=== PATIENT | female | born 1970 | race Caucasian/White ===

== ENCOUNTER 2017-07-01 19:55 | Emergency (ER) | payer OTHER ==
[~2017-07-01] VITALS: Ht 162.6 cm; Wt 60.7 kg
[2017-07-01] MEDS ORDERED: ZONI50CA3 (20:00)
[2017-07-01] MEDS ORDERED: HYDR200T3 (20:00)
[2017-07-01] MEDS ORDERED: NAPR500T3 (20:00)
[2017-07-01] MEDS ORDERED: FLUORESCEIN OPHTH 1 MG STRIP OS ONE (21:00)
[2017-07-01] MEDS ORDERED: TETRACAINE 0.5% OPHTH SOLN 4ML OS ONE (21:00)
[2017-07-01] MEDS ORDERED: TOBRAMYCIN 0.3% OPHTH SOLN 5 ML OS ONE (21:45)
[2017-07-01 21:50] VITALS: BP 113/77
== END 2017-07-01 21:56 | disposition home or self-care (01) ==
LOC: M ED 19:55
DX: S05.02XA Injury of conjunctiva and corneal abrasion without foreign body, left eye, initial encounter (principal); X58.XXXA Exposure to other specified factors, initial encounter; Y92.9 Unspecified place or not applicable; Y93.9 Activity, unspecified; Y99.8 Other external cause status; Z88.6 Allergy status to analgesic agent; Z79.899 Other long term (current) drug therapy; Z88.1 Allergy status to other antibiotic agents

== ENCOUNTER → 2018-07-21 | Outpatient (CLI) | payer OTHER ==
[~2018-07-21] MED LIST: LIDOCAINE 1% MDV 20ML VIAL As Ordered
== END ==
LOC: M RADPRO 12:00
DX: E07.9 Disorder of thyroid, unspecified (principal)
CPT/HCPCS: 10022

== ENCOUNTER → 2018-12-03 | Outpatient (REF) | payer OTHER ==
[~2018-12-03] MED LIST changes: +HYDR200T3; -LIDOCAINE 1% MDV 20ML VIAL As Ordered; +NAPR-885; +ZONI50CA3
== END ==
LOC: M SFHCLERA 18:50
PROVIDERS: ATTEND Nurse Practitioner Family
DX: R53.81 Other malaise (principal)

== ENCOUNTER → 2018-12-16 | Outpatient (CLI) | payer OTHER ==
--- NOTE | 2018-12-16 20:17 | REP ---
CHEST PA AND LATERAL: 12/16/2018. Clinical history: Cough, dyspnea, chest pain. Comparison: AP portable chest 12/06/2011. Findings: Two-view show the lungs well inflated. The CP angles sharply defined. There is no effusion, lateral pleural thickening or apical scarring. No pneumothorax. I see no infiltrate, atelectasis or mass. The heart, mediastinal and hilar contours are normal. Bony thorax shows no focal lesion or compression deformity no free air the diaphragm. Impression: 1. No acute cardiopulmonary change. Electronically Signed by Demario Zhao MD 12/16/2018 08:54 P
== END ==
LOC: M LRY 17:56
PROVIDERS: ATTEND Nurse Practitioner Family
DX: M79.10 Myalgia, unspecified site (principal)

== ENCOUNTER 2020-04-21 15:07 | Emergency (ER) | payer OTHER ==
[~2020-04-21] VITALS: Ht 162.6 cm; Wt 61.7 kg
[~2020-04-21 15:07] MED LIST changes: +ZONI50CA11; -ZONI50CA3
[2020-04-21] MEDS ORDERED: ZONI25CA13 PO ×2 (15:26)
[2020-04-21] MEDS ORDERED: MAXA10TA14 (15:27)
[2020-04-21] MEDS ORDERED: CELE1CAP4 (15:27)
[2020-04-21] MEDS ORDERED: NS 1,000 ML IV ONE (16:00)
[2020-04-21 16:19] LABS: BASO % 0.4 % (0.0-1.0); EOS % 0.4 % (0.0-3.0); HEMATOCRIT 41.5 % (36.0-47.0); HEMOGLOBIN 14.1 g/dl (12.0-15.5); LYMPH % 9.6 % (24.0-44.0); MEAN CORPUSCULAR HEMOGLOBIN 30.1 pg (27.0-33.0); MEAN CORPUSCULAR VOLUME 88.7 fl (80.0-96.0); MONO # 0.5 10^3/uL (0.0-0.8); NEUTROPHILS # 8.4 10^3/uL (1.5-8.5); NEUTROPHILS % 84.2 % (36.0-66.0); PLATELET COUNT, AUTOMATED 241 10^3/uL (150-450); RED BLOOD COUNT 4.68 10^6/uL (4.00-5.40); WHITE BLOOD COUNT 9.9 10^3/uL (4.0-10.0)
[2020-04-21 16:25] LABS: BLOOD UREA NITROGEN 22 MG/DL (7-18); CALCIUM LEVEL 8.9 MG/DL (8.5-10.1); CARBON DIOXIDE LEVEL 25 MEQ/L (21-32); CHLORIDE LEVEL 111 MEQ/L (98-107); CK-MB VALUE MASS < 1.0 NG/ML (<3.6); CPK CREATINE PHOSPHOKINASE 77 U/L (26-192); CREATININE FOR GFR 0.86 MG/DL (0.55-1.30); ETHYL ALCOHOL (ETHANOL) < 0.003 % (0.000-0.010); GLOMERULAR FILTRATION RATE > 60.0 (>51); GLUCOSE, FASTING 111 MG/DL (70-100); MAGNESIUM LEVEL 1.7 MG/DL (1.8-2.4); POTASSIUM SERUM 3.7 MEQ/L (3.5-5.1); SODIUM LEVEL 144 MEQ/L (136-145); TROPONIN I < 0.02 NG/ML (< 0.10)
[2020-04-21 16:45] VITALS: BP 109/63
[2020-04-21 18:19] LABS: AMPHETAMINES LEVEL URINE NEGATIVE (NEGATIVE); BARBITURATES URINE NEGATIVE (NEGATIVE); BENZODIAZEPINES URINE NEGATIVE (NEGATIVE); CANNABINOIDS URINE NEGATIVE (NEGATIVE); COCAINE METABOLITE URINE NEGATIVE (NEGATIVE); METHADONE URINE NEGATIVE (NEGATIVE); OPIATES URINE NEGATIVE (NEGATIVE); PHENCYCLIDINE URINE NEGATIVE (NEGATIVE)
--- NOTE | 2020-04-21 21:32 | ECGEPIP ---
[facility] - ED Test Date: 2020-04-21 Pat Name: PETROS ZAMBRANO Department: Room: - Gender: Female Noc Engineer: turner : [id number] Requested By: JENNIFER DALAL Order Number: [id number] Reading MD: Van Keith Measurements Intervals [place] Rate: 67 P: 55 AR: 182 QRS: 23 QRSD: 99 T: 41 QT: 395 QTc: 417 Interpretive Statements SINUS RHYTHM POSSIBLE INCOMPLETE RIGHT BUNDLE BRANCH BLOCK NONSPECIFIC T-WAVE ABNORMALITY NO PRIORS FOR COMPARISON Electronically Signed on 04-21-2020 21:31:38 EDT by Van Keith
== END 2020-04-21 17:33 | disposition home or self-care (01) ==
LOC: EDBD 15:07 → M ED 15:07
DX: R55 Syncope and collapse (principal); M32.9 Systemic lupus erythematosus, unspecified; Z88.1 Allergy status to other antibiotic agents
CPT/HCPCS: 80048; 80307; 82550; 82553; 83735; 84443; 84484; 85025; 93005; 93041; 94760; 96360; 99285; G0480

== ENCOUNTER → 2022-06-01 | Outpatient (CLI) | payer OTHER ==
[~2022-06-01] MED LIST changes: +CELE1CAP4; +MAXA10TA14; +ZONI25CA13 PO
== END ==
LOC: M SOG 08:47
PROVIDERS: ATTEND Orthopaedic Surgery Adult Reconstructive Orthopaedic Surgery
DX: M25.561 Pain in right knee (principal)

== ENCOUNTER → 2022-06-07 | Outpatient (REF) | payer OTHER | LOC: M LAB REF 12:45 | PROVIDERS: ATTEND Physician Assistant | DX: N39.0 Urinary tract infection, site not specified (principal) ==

== ENCOUNTER → 2022-06-27 | Outpatient (CLI) | payer OTHER | LOC: M WHC 10:51 | PROVIDERS: ATTEND Student in an Organized Health Care Education/Training Program | DX: Z12.31 Encounter for screening mammogram for malignant neoplasm of breast (principal) ==

== ENCOUNTER 2022-08-20 08:45 | Observation (INO) | payer OTHER ==
[~2022-08-20] VITALS: Ht 162.6 cm; Wt 61.4 kg
[~2022-08-20 08:45] MED LIST changes: -CELE1CAP4; +CELE1CAP4 PO; +FLUTISP NARES; -HYDR200T3; +HYDR200T3 PO; +LORA-674 PO; -MAXA10TA14; +MUCI30TA5 PO; +MULTTAB61 PO; +OMEP40CA5 PO; +RIZA10TA64 PO; +ZONI50CA11 PO
[2022-08-20] MEDS ORDERED: [UNRECOGNIZED DRUG - CODE] PO (09:04)
[2022-08-20 09:28] LABS: BASO % 0.6 % (0.0-1.0); EOS # 0.1 10^3/uL (0.0-0.5); EOS % 1.9 % (0.0-3.0); HEMATOCRIT 39.6 % (36.0-47.0); HEMOGLOBIN 13.1 g/dl (12.0-15.5); LYMPH # 0.6 10^3/uL (1.5-5.0); LYMPH % 17.7 % (24.0-44.0); MEAN CORPUSCULAR HEMOGLOBIN 28.1 pg (27.0-33.0); MEAN CORPUSCULAR HGB CONC 33.1 g/dl (32.0-36.5); MONO # 0.2 10^3/uL (0.0-0.8); MONO % 6.5 % (2.0-8.0); NEUTROPHILS # 2.4 10^3/uL (1.5-8.5); PLATELET COUNT, AUTOMATED 248 10^3/uL (150-450); RED BLOOD COUNT 4.66 10^6/uL (4.00-5.40); WHITE BLOOD COUNT 3.2 10^3/uL (4.0-10.0)
[2022-08-20 10:16] LABS: CK-MB VALUE MASS < 1.0 NG/ML (<3.6); CPK CREATINE PHOSPHOKINASE 52 U/L (26-192); MB/CK RELATIVE INDEX 1.92 (< OR =4)
[2022-08-20 10:18] LABS: ALBUMIN 3.5 GM/DL (3.2-5.2); ALT/SGPT 20 U/L (12-78); BILIRUBIN,DIRECT < 0.1 MG/DL (0.0-0.2); BILIRUBIN,TOTAL 0.3 MG/DL (0.2-1.0); BLOOD UREA NITROGEN 19 MG/DL (7-18); CALCIUM LEVEL 8.7 MG/DL (8.5-10.1); CARBON DIOXIDE LEVEL 22 MEQ/L (21-32); CHLORIDE LEVEL 114 MEQ/L (98-107); CREATININE FOR GFR 0.69 MG/DL (0.55-1.30); FREE T4 1.09 NG/DL (0.76-1.46); GLOMERULAR FILTRATION RATE > 60.0 (>51); GLUCOSE, FASTING 116 MG/DL (70-100); LIPASE 96 U/L (73-393); POTASSIUM SERUM 3.6 MEQ/L (3.5-5.1); SODIUM LEVEL 144 MEQ/L (136-145); TOTAL PROTEIN 6.8 GM/DL (6.4-8.2)
[2022-08-20 11:31] LABS: CK-MB VALUE MASS < 1.0 NG/ML (<3.6); CPK CREATINE PHOSPHOKINASE 49 U/L (26-192); MB/CK RELATIVE INDEX 2.04 (< OR =4)
[2022-08-20] MEDS ORDERED: ISOVUE-370 76% 100ML VIAL As Ordered ONE (12:16)
[2022-08-20] MEDS ORDERED: BENL200I IM (12:36)
[2022-08-20 18:52] LABS: AMPHETAMINES LEVEL URINE NEGATIVE (NEGATIVE); BARBITURATES URINE NEGATIVE (NEGATIVE); BENZODIAZEPINES URINE NEGATIVE (NEGATIVE); CANNABINOIDS URINE NEGATIVE (NEGATIVE); COCAINE METABOLITE URINE NEGATIVE (NEGATIVE); METHADONE URINE NEGATIVE (NEGATIVE); OPIATES URINE NEGATIVE (NEGATIVE); PHENCYCLIDINE URINE NEGATIVE (NEGATIVE)
[2022-08-20] MEDS ORDERED: METOPROLOL TART 25 MG TABLET PO ONE (19:00)
[2022-08-20] MEDS ORDERED: ATEN25TA PO (19:02)
[2022-08-20 19:09] VITALS: BP 110/71
[2022-08-20] MEDS ORDERED: VITA100093 PO (21:47)
[2022-08-20] MEDS ORDERED: PROAAER10 INH (21:47)
[2022-08-20] MEDS ORDERED: HOME MED LIST COMPLETE! XX SCH (21:50)
[2022-08-20] MEDS ORDERED: NS 1,000 ML IV ONE (22:15)
[2022-08-20] MEDS ORDERED: MOM 30ML SUSPENSION UDC PO PRN (23:00)
[2022-08-20] MEDS: NS 1,000 ML IV SCH (23:00)
[2022-08-21 00:16] LABS: RSV AMPLIFICATION NEGATIVE (NEGATIVE)
[2022-08-21] MEDS: ZONISAMIDE 50 MG CAP (ZONEGRAN) PO SCH ×2 (03:26→19:57)
[2022-08-21] MEDS: HYDROXYCHLOROQUINE 200 MG TAB PO SCH ×2 (03:26→19:57)
[2022-08-21 09:15] LABS: HEMATOCRIT 32.6 % (36.0-47.0); MEAN CORPUSCULAR HEMOGLOBIN 27.7 pg (27.0-33.0); MEAN CORPUSCULAR HGB CONC 31.9 g/dl (32.0-36.5); MEAN CORPUSCULAR VOLUME 86.9 fl (80.0-96.0); PLATELET COUNT, AUTOMATED 238 10^3/uL (150-450); RED BLOOD COUNT 3.75 10^6/uL (4.00-5.40); WHITE BLOOD COUNT 2.9 10^3/uL (4.0-10.0)
[2022-08-21 09:26] LABS: HEMOGLOBIN 10.4 g/dl (12.0-15.5)
[2022-08-21] MEDS: NS 1,000 ML IV SCH (09:30)
[2022-08-21] MEDS: ENOXAPARIN 40MG/0.4ML SYRINGE (J1650 PER 10MG) SC SCH ×2 (09:30→09:38)
[2022-08-21] MEDS: LORATADINE 10 MG TAB PO SCH (09:30)
[2022-08-21 09:40] LABS: ALBUMIN 2.6 GM/DL (3.2-5.2); ALT/SGPT 15 U/L (12-78); BILIRUBIN,TOTAL 0.3 MG/DL (0.2-1.0); BLOOD UREA NITROGEN 16 MG/DL (7-18); CALCIUM LEVEL 8.1 MG/DL (8.5-10.1); CARBON DIOXIDE LEVEL 23 MEQ/L (21-32); CHLORIDE LEVEL 117 MEQ/L (98-107); CREATININE FOR GFR 0.53 MG/DL (0.55-1.30); GLOMERULAR FILTRATION RATE > 60.0 (>51); GLUCOSE, FASTING 95 MG/DL (70-100); MAGNESIUM LEVEL 1.7 MG/DL (1.8-2.4); POTASSIUM SERUM 3.6 MEQ/L (3.5-5.1); SODIUM LEVEL 144 MEQ/L (136-145); TOTAL PROTEIN 5.3 GM/DL (6.4-8.2)
[2022-08-21 12:10] VITALS: BP_SYST 128; BP_SYST 140; BP_DIAS 84; BP_DIAS 86
[2022-08-21 14:00] VITALS: BP 120/72
[2022-08-21] MEDS ORDERED: MAGNESIUM OXIDE 400MG TAB (MAG-OX) PO ONE (16:05)
[2022-08-21 17:55] LABS: APPEARANCE, URINE MANUAL CLEAR (CLEAR); BILIRUBIN, URINE MANUAL NEGATIVE (NEGATIVE); BLOOD URINE MANUAL NEGATIVE (NEGATIVE); COLOR, URINE MANUAL LT YELLOW (YELLOW); GLUCOSE, URINE (UA) MANUAL NEGATIVE (NEGATIVE); KETONE, URINE MANUAL NEGATIVE (NEGATIVE); LEUKOCYTE ESTERASE, URINE MAN NEGATIVE (NEGATIVE); NITRITE, URINE MANUAL NEGATIVE (NEGATIVE); PROTEIN, URINE MANUAL NEGATIVE (NEGATIVE); UROBILINOGEN, URINE MANUAL NORMAL (NORMAL)
[2022-08-21] MEDS ORDERED: POTASSIUM CHLORIDE 10MEQ SR TABLET PO ONE (18:00)
[2022-08-21 21:43] VITALS: BP 125/71
[2022-08-22 06:00] VITALS: BP 118/56
[2022-08-22] MEDS: LORATADINE 10 MG TAB PO SCH (08:11)
[2022-08-22] MEDS: ENOXAPARIN 40MG/0.4ML SYRINGE (J1650 PER 10MG) SC SCH (08:12)
[2022-08-22 08:40] LABS: HEMATOCRIT 36.3 % (36.0-47.0); HEMOGLOBIN 11.8 g/dl (12.0-15.5); MEAN CORPUSCULAR HEMOGLOBIN 27.6 pg (27.0-33.0); MEAN CORPUSCULAR HGB CONC 32.5 g/dl (32.0-36.5); MEAN CORPUSCULAR VOLUME 84.8 fl (80.0-96.0); PLATELET COUNT, AUTOMATED 261 10^3/uL (150-450); RED BLOOD COUNT 4.28 10^6/uL (4.00-5.40)
[2022-08-22 09:09] LABS: BLOOD UREA NITROGEN 11 MG/DL (7-18); CARBON DIOXIDE LEVEL 25 MEQ/L (21-32); CHLORIDE LEVEL 111 MEQ/L (98-107); CREATININE FOR GFR 0.67 MG/DL (0.55-1.30); GLOMERULAR FILTRATION RATE > 60.0 (>51); GLUCOSE, FASTING 128 MG/DL (70-100); MAGNESIUM LEVEL 1.9 MG/DL (1.8-2.4); PHOSPHORUS LEVEL 3.7 MG/DL (2.5-4.9); POTASSIUM SERUM 3.7 MEQ/L (3.5-5.1); SODIUM LEVEL 144 MEQ/L (136-145)
[2022-08-22 14:00] VITALS: BP 133/75
[2022-08-22] MEDS ORDERED: ACETAMINOPHEN TAB 650MG DOSE (2X325MG) PO PRN (21:10)
[2022-08-22] MEDS ORDERED: ANALGESIC BALM CRM 3OZ TOP PRN (21:10)
[2022-08-22] MEDS ORDERED: KETOROLAC 30 MG/ML 1ML VIAL IV ONE (21:10)
[2022-08-22 21:24] VITALS: BP 138/72
[2022-08-22] MEDS: ZONISAMIDE 50 MG CAP (ZONEGRAN) PO SCH (21:45)
[2022-08-22] MEDS: HYDROXYCHLOROQUINE 200 MG TAB PO SCH (21:45)
[2022-08-23 06:29] VITALS: BP 128/68
[2022-08-23 06:29] LABS: HEMATOCRIT 36.1 % (36.0-47.0); HEMOGLOBIN 11.9 g/dl (12.0-15.5); RED BLOOD COUNT 4.23 10^6/uL (4.00-5.40); WHITE BLOOD COUNT 2.5 10^3/uL (4.0-10.0)
[2022-08-23 06:30] LABS: MEAN CORPUSCULAR HEMOGLOBIN 28.1 pg (27.0-33.0); MEAN CORPUSCULAR VOLUME 85.3 fl (80.0-96.0); PLATELET COUNT, AUTOMATED 249 10^3/uL (150-450)
[2022-08-23 07:33] LABS: BLOOD UREA NITROGEN 21 MG/DL (7-18); CALCIUM LEVEL 8.8 MG/DL (8.5-10.1); CARBON DIOXIDE LEVEL 24 MEQ/L (21-32); CHLORIDE LEVEL 110 MEQ/L (98-107); CREATININE FOR GFR 0.64 MG/DL (0.55-1.30); GLOMERULAR FILTRATION RATE > 60.0 (>51); GLUCOSE, FASTING 101 MG/DL (70-100); MAGNESIUM LEVEL 1.9 MG/DL (1.8-2.4); PHOSPHORUS LEVEL 4.9 MG/DL (2.5-4.9); POTASSIUM SERUM 3.8 MEQ/L (3.5-5.1); SODIUM LEVEL 140 MEQ/L (136-145)
[2022-08-23] MEDS: ENOXAPARIN 40MG/0.4ML SYRINGE (J1650 PER 10MG) SC SCH (09:00)
[2022-08-23] MEDS: LORATADINE 10 MG TAB PO SCH (09:45)
== END 2022-08-23 11:27 | disposition home or self-care (01) ==
LOC: M ED 08:45 → M ED INP 08:46 → M ED 19:52 → ENRESERV 08-21 10:28 → M MSPAV 08-21 12:02
PROVIDERS: ADMIT Family Medicine; ATTEND Internal Medicine
DX: R55 Syncope and collapse (principal); M32.9 Systemic lupus erythematosus, unspecified; D72.819 Decreased white blood cell count, unspecified; H81.09 Meniere's disease, unspecified ear; D64.9 Anemia, unspecified; R00.0 Tachycardia, unspecified; I44.0 Atrioventricular block, first degree; I45.4 Nonspecific intraventricular block; R00.2 Palpitations; K21.9 Gastro-esophageal reflux disease without esophagitis; M79.7 Fibromyalgia; G43.709 Chronic migraine without aura, not intractable, without status migrainosus; Z79.899 Other long term (current) drug therapy; Z88.1 Allergy status to other antibiotic agents
CPT/HCPCS: 36415; 70551; 71045; 71275; 80048; 80053; 80076; 80307; 80503; 82550; 82553; 83690; 83735; 84100; 84439; 84443; 84484; 85025; 85027; 87631; 93005; 93041; 93306; 94760; 96361; 96374; 97112; 97116; 97162; 99285; J1885; Q9967

== ENCOUNTER 2022-08-31 09:24 | Day surgery (SDC) | payer OTHER ==
[~2022-08-31] VITALS: Ht 162.6 cm; Wt 61.3 kg
[~2022-08-31 09:24] MED LIST changes: +ATEN25TA PO; +BENL200I IM; +NS 1,000 ML IV ONE; +PROAAER10 INH; +VITA100093 PO; +[UNRECOGNIZED DRUG - CODE] PO
[2022-08-31] MEDS ORDERED: LIDOCAINE 2% 100MG/5ML SDV (FOR ANES.) As Ordered ONE (10:53)
[2022-08-31] MEDS ORDERED: propofoL 200 MG/20 ML VIAL As Ordered ONE (10:53)
[2022-08-31 11:30] VITALS: BP 110/53
== END 2022-08-31 11:45 | disposition home or self-care (01) ==
LOC: M OPP 09:24
PROVIDERS: ATTEND Internal Medicine Gastroenterology
DX: K64.8 Other hemorrhoids (principal); Q43.8 Other specified congenital malformations of intestine; R19.4 Change in bowel habit; R12 Heartburn; Z79.51 Long term (current) use of inhaled steroids; Z79.899 Other long term (current) drug therapy; Z88.1 Allergy status to other antibiotic agents; M79.7 Fibromyalgia; M32.9 Systemic lupus erythematosus, unspecified; G43.909 Migraine, unspecified, not intractable, without status migrainosus; H04.129 Dry eye syndrome of unspecified lacrimal gland; Z87.891 Personal history of nicotine dependence

== ENCOUNTER → 2022-11-17 | Outpatient (REF) | payer OTHER ==
[~2022-11-17] MED LIST changes: +CELE1CAP9; -NS 1,000 ML IV ONE; +XIID5DRO
== END ==
LOC: M LAB REF 11:12
PROVIDERS: ATTEND Physician Assistant Medical
DX: R19.7 Diarrhea, unspecified (principal)

== ENCOUNTER → 2022-11-21 | Outpatient (CLI) | payer OTHER | LOC: M RAD 13:44 | PROVIDERS: ATTEND Physician Assistant Medical | DX: R19.7 Diarrhea, unspecified (principal) ==

== ENCOUNTER 2022-12-24 09:19 | Emergency (ER) | payer OTHER ==
[~2022-12-24] VITALS: Ht 162.6 cm; Wt 63.6 kg
[2022-12-24] MEDS ORDERED: PRED5PAK PO (09:48)
[2022-12-24] MEDS ORDERED: METOCLOPRAMIDE INJ 10MG/2ML VIAL IV ONE (12:05)
[2022-12-24] MEDS ORDERED: diphenhydrAMINE 50MG/ML VIAL IV ONE (12:05)
[2022-12-24] MEDS ORDERED: NS 1,000 ML IV ONE (12:05)
[2022-12-24] MEDS ORDERED: KETOROLAC 30 MG/ML 1ML VIAL IV ONE (12:05)
[2022-12-24 12:58] LABS: BASO % 0.6 % (0.0-1.0); EOS # 0.1 10^3/uL (0.0-0.5); EOS % 2.3 % (0.0-3.0); HEMATOCRIT 37.6 % (36.0-47.0); HEMOGLOBIN 11.8 g/dl (12.0-15.5); LYMPH # 0.5 10^3/uL (1.5-5.0); LYMPH % 14.3 % (24.0-44.0); MEAN CORPUSCULAR HEMOGLOBIN 27.1 pg (27.0-33.0); MEAN CORPUSCULAR HGB CONC 31.4 g/dl (32.0-36.5); MEAN CORPUSCULAR VOLUME 86.2 fl (80.0-96.0); MONO # 0.1 10^3/uL (0.0-0.8); MONO % 4.1 % (2.0-8.0); NEUTROPHILS # 2.7 10^3/uL (1.5-8.5); NEUTROPHILS % 77.8 % (36.0-66.0); PLATELET COUNT, AUTOMATED 280 10^3/uL (150-450); RED BLOOD COUNT 4.36 10^6/uL (4.00-5.40); WHITE BLOOD COUNT 3.4 10^3/uL (4.0-10.0)
[2022-12-24 13:46] LABS: BLOOD UREA NITROGEN 15 MG/DL (9-23); CALCIUM LEVEL 8.4 MG/DL (8.5-10.1); CARBON DIOXIDE LEVEL 25 MMOL/L (20-31); CHLORIDE LEVEL 108 MMOL/L (98-107); CREATININE FOR GFR 0.65 MG/DL (0.55-1.30); GLOMERULAR FILTRATION RATE > 60.0 (>51); GLUCOSE, FASTING 80 MG/DL (60-100); POTASSIUM SERUM 5.6 MMOL/L (3.5-5.1); SODIUM LEVEL 140 MMOL/L (136-145)
[2022-12-24 15:36] VITALS: BP 114/62
== END 2022-12-24 15:36 | disposition home or self-care (01) ==
LOC: M ED 09:19
DX: R51.9 Headache, unspecified (principal); Z88.1 Allergy status to other antibiotic agents; Z79.1 Long term (current) use of non-steroidal anti-inflammatories (NSAID); Z79.52 Long term (current) use of systemic steroids; Z79.899 Other long term (current) drug therapy
CPT/HCPCS: 70450; 80048; 85025; 87486; 87581; 87633; 87798; 96361; 96374; 99284; J1200; J1885; J2765

== ENCOUNTER 2023-01-18 19:13 | Inpatient (IN) | payer OTHER ==
[~2023-01-18] VITALS: Ht 162.6 cm; Wt 61.5 kg
[~2023-01-18 19:13] MED LIST changes: -CELE1CAP9; +CELE1CAP9 PO; +PRED5PAK PO; -XIID5DRO; +XIID5DRO OU
[2023-01-18] MEDS ORDERED: ACETAMINOPHEN 500 MG TAB PO ONE (19:50)
[2023-01-18] MEDS ORDERED: NS 1,000 ML IV ONE (19:50)
[2023-01-18] MEDS ORDERED: ISOVUE-370 76% 100ML VIAL As Ordered ONE (19:54)
[2023-01-18 20:21] LABS: EOS # 0.1 10^3/uL (0.0-0.5); EOS % 2.2 % (0.0-3.0); HEMATOCRIT 33.3 % (36.0-47.0); HEMOGLOBIN 10.8 g/dl (12.0-15.5); LYMPH # 0.3 10^3/uL (1.5-5.0); LYMPH % 10.3 % (24.0-44.0); MEAN CORPUSCULAR HEMOGLOBIN 26.7 pg (27.0-33.0); MEAN CORPUSCULAR HGB CONC 32.4 g/dl (32.0-36.5); MEAN CORPUSCULAR VOLUME 82.2 fl (80.0-96.0); MONO # 0.1 10^3/uL (0.0-0.8); MONO % 3.1 % (2.0-8.0); NEUTROPHILS # 2.7 10^3/uL (1.5-8.5); NEUTROPHILS % 83.5 % (36.0-66.0); PLATELET COUNT, AUTOMATED 288 10^3/uL (150-450); RED BLOOD COUNT 4.05 10^6/uL (4.00-5.40); WHITE BLOOD COUNT 3.2 10^3/uL (4.0-10.0)
[2023-01-18 20:50] LABS: LIPASE 24 U/L (12-53)
[2023-01-18 20:51] LABS: CK-MB VALUE MASS < 1.0 NG/ML (<3.6)
[2023-01-18 20:52] LABS: ALBUMIN 2.8 G/DL (3.2-5.2); ALKALINE PHOSPHATASE 60 U/L (46-116); ALT/SGPT 79 U/L (7.0-40); AST/SGOT 58 U/L (<34); BILIRUBIN,DIRECT < 0.1 MG/DL (<0.4); BILIRUBIN,TOTAL 0.3 MG/DL (0.3-1.2); CPK CREATINE PHOSPHOKINASE 91 U/L (34-145); MB/CK RELATIVE INDEX 1.09 (< OR =4); TOTAL PROTEIN 6.1 G/DL (5.7-8.2)
[2023-01-18] MEDS: ZONISAMIDE 50 MG CAP (ZONEGRAN) PO SCH (21:00)
[2023-01-18] MEDS: HYDROXYCHLOROQUINE 200 MG TAB PO SCH (21:00)
[2023-01-18] MEDS ORDERED: VENTAER INH (23:48)
[2023-01-18] MEDS ORDERED: HOME MED LIST COMPLETE! XX SCH (23:50)
[2023-01-19] VITALS (16 sets, daily range): BP systolic 109–120; BP diastolic 53–58; O2SAT 96–98
[2023-01-19] MEDS ORDERED: ALBUTEROL 90 MCG/ACT 8GM HFA INHALER INH PRN
[2023-01-19] MEDS ORDERED: RIZATRIPTAN BENZOATE 10 MG TAB PO PRN
[2023-01-19] MEDS: NS 1,000 ML IV SCH ×2 (00:28→15:48)
[2023-01-19] MEDS: PIPERACILLIN/TAZOBACTAM SOD 3.375 GM in D5W MINI-BAG PLUS 50 ML IV SCH ×4 (01:54→18:20)
[2023-01-19] MEDS: ACETAMINOPHEN TAB 650MG DOSE (2X325MG) PO PRN ×2 (02:50→20:21)
[2023-01-19 04:39] LABS: HEMATOCRIT 30.7 % (36.0-47.0); HEMOGLOBIN 9.8 g/dl (12.0-15.5); MEAN CORPUSCULAR HEMOGLOBIN 26.7 pg (27.0-33.0); MEAN CORPUSCULAR HGB CONC 31.9 g/dl (32.0-36.5); MEAN CORPUSCULAR VOLUME 83.7 fl (80.0-96.0); PLATELET COUNT, AUTOMATED 247 10^3/uL (150-450); RED BLOOD COUNT 3.67 10^6/uL (4.00-5.40); WHITE BLOOD COUNT 3.5 10^3/uL (4.0-10.0)
[2023-01-19 05:16] LABS: ALBUMIN 2.4 G/DL (3.2-5.2); ALKALINE PHOSPHATASE 50 U/L (46-116); ALT/SGPT 63 U/L (7.0-40); AST/SGOT 44 U/L (<34); BILIRUBIN,TOTAL 0.5 MG/DL (0.3-1.2); BLOOD UREA NITROGEN 9 MG/DL (9-23); CALCIUM LEVEL 7.3 MG/DL (8.5-10.1); CARBON DIOXIDE LEVEL 23 MMOL/L (20-31); CHLORIDE LEVEL 110 MMOL/L (98-107); CREATININE FOR GFR 0.57 MG/DL (0.55-1.30); GLOMERULAR FILTRATION RATE > 60.0 (>51); GLUCOSE, FASTING 110 MG/DL (60-100); MAGNESIUM LEVEL 1.5 MG/DL (1.8-2.4); POTASSIUM SERUM 3.3 MMOL/L (3.5-5.1); SODIUM LEVEL 141 MMOL/L (136-145); TOTAL PROTEIN 5.3 G/DL (5.7-8.2)
[2023-01-19] MEDS ORDERED: KETOROLAC 30 MG/ML 1ML VIAL IV PRN (05:45)
[2023-01-19] MEDS ORDERED: MAG SULF 1GM/100ML (MAG RUN) 1 GM in IV 1 EA IV ONE (06:00)
[2023-01-19] MEDS: traMADol 50 MG TAB PO PRN ×2 (06:06→16:18)
[2023-01-19] MEDS ORDERED: POTASSIUM CHLORIDE 10MEQ SR TABLET PO ONE (07:00)
[2023-01-19 07:08] LABS: HEPATITIS B SURFACE ANTIGEN NEGATIVE (NEGATIVE)
[2023-01-19 07:28] LABS: HEPATITIS C VIRUS ABY INDEX 0.1 INDEX (<0.8)
[2023-01-19 07:29] LABS: HEPATITIS B CORE ANTIBODY IGM NEGATIVE (NEGATIVE)
[2023-01-19] MEDS: ENOXAPARIN 40MG/0.4ML SYRINGE (J1650 PER 10MG) SC SCH (09:48)
[2023-01-19] MEDS: LORATADINE 10 MG TAB PO SCH (09:48)
[2023-01-19] MEDS: CelecoXIB (CeleBREX) 100 MG CAP PO SCH ×2 (09:48→20:21)
[2023-01-19] MEDS: FLUTICASONE PROP 0.05% NASAL SPRAY 16 GM (FLONASE) NARES SCH (09:48)
[2023-01-19] MEDS: guaiFENesin ER 600 MG TAB PO SCH ×2 (09:48→20:21)
[2023-01-19] MEDS ORDERED: ISOVUE-370 76% 100ML VIAL As Ordered ONE (20:10)
[2023-01-19] MEDS: ZONISAMIDE 50 MG CAP (ZONEGRAN) PO SCH (20:21)
[2023-01-19] MEDS: HYDROXYCHLOROQUINE 200 MG TAB PO SCH (20:22)
[2023-01-20] VITALS (18 sets, daily range): BP systolic 105–131; BP diastolic 53–65; O2SAT 95–99
[2023-01-20] MEDS: PIPERACILLIN/TAZOBACTAM SOD 3.375 GM in D5W MINI-BAG PLUS 50 ML IV SCH ×2 (01:49→06:36)
[2023-01-20 04:22] LABS: HEMATOCRIT 30.8 % (36.0-47.0); HEMOGLOBIN 9.7 g/dl (12.0-15.5); MEAN CORPUSCULAR HEMOGLOBIN 26.5 pg (27.0-33.0); MEAN CORPUSCULAR HGB CONC 31.5 g/dl (32.0-36.5); MEAN CORPUSCULAR VOLUME 84.2 fl (80.0-96.0); PLATELET COUNT, AUTOMATED 247 10^3/uL (150-450); RED BLOOD COUNT 3.66 10^6/uL (4.00-5.40); WHITE BLOOD COUNT 1.9 10^3/uL (4.0-10.0)
[2023-01-20 04:48] LABS: ATYPICAL LYMPH 1 % (0-5); EOSINOPHILS 8 % (0-3); LYMPHOCYTES 27 % (16-44); MONOCYTES 4 % (0-5); NEUTROPHILS 59 % (28-66); PLATELET ESTIMATE NORMAL (NORMAL)
[2023-01-20 04:49] LABS: ANISOCYTOSIS 1+; HYPOCHROMASIA 1+; PLATELET CLUMPS SMALL AMT
[2023-01-20 04:52] LABS: ALBUMIN 2.3 G/DL (3.2-5.2); ALKALINE PHOSPHATASE 44 U/L (46-116); ALT/SGPT 50 U/L (7.0-40); AST/SGOT 33 U/L (<34); BILIRUBIN,TOTAL 0.4 MG/DL (0.3-1.2); BLOOD UREA NITROGEN < 5 MG/DL (9-23); CALCIUM LEVEL 7.1 MG/DL (8.5-10.1); CARBON DIOXIDE LEVEL 24 MMOL/L (20-31); CHLORIDE LEVEL 113 MMOL/L (98-107); CREATININE FOR GFR 0.56 MG/DL (0.55-1.30); GLOMERULAR FILTRATION RATE > 60.0 (>51); GLUCOSE, FASTING 98 MG/DL (60-100); POTASSIUM SERUM 3.8 MMOL/L (3.5-5.1); SODIUM LEVEL 142 MMOL/L (136-145); TOTAL PROTEIN 5.2 G/DL (5.7-8.2)
[2023-01-20] MEDS: FLUTICASONE PROP 0.05% NASAL SPRAY 16 GM (FLONASE) NARES SCH (08:36)
[2023-01-20] MEDS: ENOXAPARIN 40MG/0.4ML SYRINGE (J1650 PER 10MG) SC SCH (08:36)
[2023-01-20] MEDS: CelecoXIB (CeleBREX) 100 MG CAP PO SCH ×2 (08:36→20:22)
[2023-01-20] MEDS: guaiFENesin ER 600 MG TAB PO SCH ×2 (08:37→20:22)
[2023-01-20] MEDS: LORATADINE 10 MG TAB PO SCH (08:37)
[2023-01-20] MEDS: traMADol 50 MG TAB PO PRN ×2 (08:38→15:40)
[2023-01-20 09:56] LABS: LDH LACTATE DEHYDROGENASE 216 U/L (120-246)
[2023-01-20] MEDS: LevoFLOXacin 750 MG TABLET PO SCH (10:33)
[2023-01-20 15:03] LABS: CREATININE FOR GFR 0.55 MG/DL (0.55-1.30); GLOMERULAR FILTRATION RATE > 60.0 (>51)
[2023-01-20] MEDS: ENOXAPARIN 80MG/0.8ML SYRINGE (J1650 PER 10MG) SC SCH (18:30)
[2023-01-20] MEDS: ACETAMINOPHEN TAB 650MG DOSE (2X325MG) PO PRN (20:22)
[2023-01-20] MEDS: ZONISAMIDE 50 MG CAP (ZONEGRAN) PO SCH (20:22)
[2023-01-20] MEDS: HYDROXYCHLOROQUINE 200 MG TAB PO SCH (20:22)
[2023-01-21] VITALS (12 sets, daily range): BP systolic 101–144; BP diastolic 51–61; O2SAT 94–97
[2023-01-21 04:28] LABS: BASO % 0.6 % (0.0-1.0); EOS # 0.1 10^3/uL (0.0-0.5); EOS % 5.7 % (0.0-3.0); HEMATOCRIT 32.2 % (36.0-47.0); LYMPH # 0.4 10^3/uL (1.5-5.0); LYMPH % 22.7 % (24.0-44.0); MEAN CORPUSCULAR HEMOGLOBIN 26.2 pg (27.0-33.0); MEAN CORPUSCULAR HGB CONC 31.1 g/dl (32.0-36.5); MEAN CORPUSCULAR VOLUME 84.5 fl (80.0-96.0); MONO # 0.1 10^3/uL (0.0-0.8); MONO % 5.1 % (2.0-8.0); NEUTROPHILS # 1.2 10^3/uL (1.5-8.5); NEUTROPHILS % 65.3 % (36.0-66.0); PLATELET COUNT, AUTOMATED 293 10^3/uL (150-450); RED BLOOD COUNT 3.81 10^6/uL (4.00-5.40); WHITE BLOOD COUNT 1.8 10^3/uL (4.0-10.0)
[2023-01-21 05:04] LABS: ALBUMIN 2.2 G/DL (3.2-5.2); ALKALINE PHOSPHATASE 49 U/L (46-116); ALT/SGPT 42 U/L (7.0-40); AST/SGOT 37 U/L (<34); BILIRUBIN,TOTAL 0.3 MG/DL (0.3-1.2); BLOOD UREA NITROGEN 6 MG/DL (9-23); CALCIUM LEVEL 8.2 MG/DL (8.5-10.1); CARBON DIOXIDE LEVEL 25 MMOL/L (20-31); CHLORIDE LEVEL 108 MMOL/L (98-107); CREATININE FOR GFR 0.58 MG/DL (0.55-1.30); GLOMERULAR FILTRATION RATE > 60.0 (>51); GLUCOSE, FASTING 91 MG/DL (60-100); POTASSIUM SERUM 3.8 MMOL/L (3.5-5.1); SODIUM LEVEL 139 MMOL/L (136-145); TOTAL PROTEIN 5.5 G/DL (5.7-8.2)
[2023-01-21] MEDS: ENOXAPARIN 80MG/0.8ML SYRINGE (J1650 PER 10MG) SC SCH ×2 (06:00→18:38)
[2023-01-21] MEDS: LevoFLOXacin 750 MG TABLET PO SCH (06:31)
[2023-01-21] MEDS: FLUTICASONE PROP 0.05% NASAL SPRAY 16 GM (FLONASE) NARES SCH (09:24)
[2023-01-21] MEDS: LORATADINE 10 MG TAB PO SCH (09:24)
[2023-01-21] MEDS: guaiFENesin ER 600 MG TAB PO SCH ×2 (09:24→19:57)
[2023-01-21] MEDS: CelecoXIB (CeleBREX) 100 MG CAP PO SCH ×2 (09:24→20:02)
[2023-01-21] MEDS ORDERED: PROHANCE 279.3MG/ML 15ML VIAL As Ordered ONE (14:36)
[2023-01-21] MEDS ORDERED: VANCOMYCIN HCL 1,000 MG, VIAL MATE ADAPTER 1 EACH in D5W 250 ML IV ONE (18:00)
[2023-01-21] MEDS ORDERED: VANCOMYCIN HCL 750 MG, VIAL MATE ADAPTER 1 EACH in D5W 250 ML IV ONE (19:00)
[2023-01-21 19:09] LABS: MONO REFLEX EBV COMP NEGATIVE (NEGATIVE)
[2023-01-21] MEDS: ACETAMINOPHEN TAB 650MG DOSE (2X325MG) PO PRN (19:57)
[2023-01-21] MEDS: HYDROXYCHLOROQUINE 200 MG TAB PO SCH (19:57)
[2023-01-21] MEDS: ZONISAMIDE 50 MG CAP (ZONEGRAN) PO SCH (20:02)
[2023-01-22 00:20] VITALS: BP 128/59
[2023-01-22] MEDS ORDERED: diphenhydrAMINE 25MG CAP PO ONE (01:00)
[2023-01-22] MEDS ORDERED: diphenhydrAMINE 50MG/ML VIAL IV ONE (01:00)
[2023-01-22] MEDS ORDERED: VANCOMYCIN HCL 1,000 MG, VIAL MATE ADAPTER 1 EACH in D5W 250 ML IV SCH (02:00)
[2023-01-22 05:30] VITALS: BP 113/55
[2023-01-22 05:30] LABS: HEMATOCRIT 31.1 % (36.0-47.0); HEMOGLOBIN 9.9 g/dl (12.0-15.5); MEAN CORPUSCULAR HEMOGLOBIN 26.9 pg (27.0-33.0); MEAN CORPUSCULAR HGB CONC 31.8 g/dl (32.0-36.5); MEAN CORPUSCULAR VOLUME 84.5 fl (80.0-96.0); PLATELET COUNT, AUTOMATED 285 10^3/uL (150-450); RED BLOOD COUNT 3.68 10^6/uL (4.00-5.40); WHITE BLOOD COUNT 2.1 10^3/uL (4.0-10.0)
[2023-01-22] MEDS: LevoFLOXacin 750 MG TABLET PO SCH (05:32)
[2023-01-22] MEDS: ENOXAPARIN 80MG/0.8ML SYRINGE (J1650 PER 10MG) SC SCH ×2 (05:32→17:53)
[2023-01-22 05:47] LABS: ALBUMIN 2.4 G/DL (3.2-5.2); ALKALINE PHOSPHATASE 50 U/L (46-116); ALT/SGPT 51 U/L (7.0-40); AST/SGOT 103 U/L (<34); BILIRUBIN,TOTAL 0.2 MG/DL (0.3-1.2); BLOOD UREA NITROGEN 10 MG/DL (9-23); CARBON DIOXIDE LEVEL 24 MMOL/L (20-31); CHLORIDE LEVEL 112 MMOL/L (98-107); CREATININE FOR GFR 0.61 MG/DL (0.55-1.30); GLOMERULAR FILTRATION RATE > 60.0 (>51); GLUCOSE, FASTING 100 MG/DL (60-100); POTASSIUM SERUM 3.8 MMOL/L (3.5-5.1); SODIUM LEVEL 143 MMOL/L (136-145); TOTAL PROTEIN 5.3 G/DL (5.7-8.2)
[2023-01-22] MEDS ORDERED: LR 1,000 ML IV ONE (07:10)
[2023-01-22 07:13] LABS: ANISOCYTOSIS 2+; ATYPICAL LYMPH 2 % (0-5); BLAST CELLS 2 % (0-0); EOSINOPHILS 3 % (0-3); LYMPHOCYTES 14 % (16-44); METAMYELOCYTES 2 % (0-0); MONOCYTES 3 % (0-5); NEUTROPHILS 70 % (28-66); PLATELET ESTIMATE NORMAL (NORMAL)
[2023-01-22 07:16] LABS: HYPOCHROMASIA 1+; MICROCYTOSIS 1+; OVALOCYTES 1+; POIKILOCYTOSIS 1+
[2023-01-22 08:05] VITALS: BP 112/57
[2023-01-22] MEDS: guaiFENesin ER 600 MG TAB PO SCH ×2 (08:45→20:18)
[2023-01-22] MEDS: LORATADINE 10 MG TAB PO SCH (08:45)
[2023-01-22] MEDS: CelecoXIB (CeleBREX) 100 MG CAP PO SCH ×2 (08:45→20:18)
[2023-01-22] MEDS: FLUTICASONE PROP 0.05% NASAL SPRAY 16 GM (FLONASE) NARES SCH (08:47)
[2023-01-22 15:40] VITALS: BP 132/73
[2023-01-22] MEDS: ACETAMINOPHEN TAB 650MG DOSE (2X325MG) PO PRN (16:15)
[2023-01-22] MEDS ORDERED: diphenhydrAMINE 50MG CAP PO PRN (18:20)
[2023-01-22 19:07] LABS: FREE KAPPA LIGHT CHAINS SERUM 77.8 mg/L (3.3-19.4); FREE LAMBDA LIGHT CHAINS SERUM 45.1 mg/L (5.7-26.3); KAPPA/LAMBDA RATIO SERUM 1.73 (0.26-1.65)
[2023-01-22 20:15] VITALS: BP 113/53
[2023-01-22] MEDS: ZONISAMIDE 50 MG CAP (ZONEGRAN) PO SCH (20:18)
[2023-01-22] MEDS: HYDROXYCHLOROQUINE 200 MG TAB PO SCH (20:18)
[2023-01-23 04:03] VITALS: BP 113/55
[2023-01-23 04:54] LABS: BASO % 0.5 % (0.0-1.0); EOS # 0.1 10^3/uL (0.0-0.5); EOS % 6.7 % (0.0-3.0); HEMATOCRIT 31.3 % (36.0-47.0); HEMOGLOBIN 9.8 g/dl (12.0-15.5); LYMPH # 0.5 10^3/uL (1.5-5.0); LYMPH % 22.1 % (24.0-44.0); MEAN CORPUSCULAR HEMOGLOBIN 26.3 pg (27.0-33.0); MEAN CORPUSCULAR HGB CONC 31.3 g/dl (32.0-36.5); MEAN CORPUSCULAR VOLUME 83.9 fl (80.0-96.0); MONO # 0.1 10^3/uL (0.0-0.8); MONO % 5.3 % (2.0-8.0); NEUTROPHILS # 1.4 10^3/uL (1.5-8.5); NEUTROPHILS % 64.9 % (36.0-66.0); PLATELET COUNT, AUTOMATED 301 10^3/uL (150-450); RED BLOOD COUNT 3.73 10^6/uL (4.00-5.40); WHITE BLOOD COUNT 2.1 10^3/uL (4.0-10.0)
[2023-01-23 05:33] LABS: ALBUMIN 2.3 G/DL (3.2-5.2); ALKALINE PHOSPHATASE 57 U/L (46-116); ALT/SGPT 84 U/L (7.0-40); AST/SGOT 136 U/L (<34); BILIRUBIN,TOTAL 0.3 MG/DL (0.3-1.2); BLOOD UREA NITROGEN 12 MG/DL (9-23); CALCIUM LEVEL 8.1 MG/DL (8.5-10.1); CARBON DIOXIDE LEVEL 24 MMOL/L (20-31); CHLORIDE LEVEL 110 MMOL/L (98-107); CREATININE FOR GFR 0.57 MG/DL (0.55-1.30); GLOMERULAR FILTRATION RATE > 60.0 (>51); GLUCOSE, FASTING 93 MG/DL (60-100); POTASSIUM SERUM 3.8 MMOL/L (3.5-5.1); SODIUM LEVEL 142 MMOL/L (136-145); TOTAL PROTEIN 6.6 G/DL (5.7-8.2)
[2023-01-23] MEDS: LevoFLOXacin 750 MG TABLET PO SCH (05:57)
[2023-01-23] MEDS: ENOXAPARIN 80MG/0.8ML SYRINGE (J1650 PER 10MG) SC SCH (05:58)
[2023-01-23 07:27] VITALS: BP 114/57
[2023-01-23] MEDS ORDERED: predniSONE 20 MG TAB PO SCH (09:00)
[2023-01-23] MEDS ORDERED: PROBCAP14 PO (09:06)
[2023-01-23] MEDS ORDERED: ELIQ5TAB PO (09:06)
[2023-01-23] MEDS ORDERED: LEVO1TAB40 PO (09:06)
[2023-01-23] MEDS: guaiFENesin ER 600 MG TAB PO SCH (09:29)
[2023-01-23] MEDS: FLUTICASONE PROP 0.05% NASAL SPRAY 16 GM (FLONASE) NARES SCH (09:29)
[2023-01-23] MEDS: LORATADINE 10 MG TAB PO SCH (09:29)
[2023-01-23] MEDS: CelecoXIB (CeleBREX) 100 MG CAP PO SCH (09:29)
[2023-01-23 15:09] LABS: BODY FLUID CULTURE Not indicated. (.); LEGIONELLA ANTIGEN URINE Negative (Negative); ORGANISM ID Not indicated. (.); SPECIMEN SOURCE Urine (.); URINE STREP PNEUMONIAE ANTIGEN Negative (Negative)
[2023-01-23 17:09] LABS: EBV AB TO NUCLEAR ANTIGEN <18.0 U/mL (0.0-17.9); EBV VIRAL CAPSID AG IgM <36.0 U/mL (0.0-35.9)
== END 2023-01-23 11:59 | disposition home or self-care (01) | DRG 178 ==
LOC: M ED 19:13 → EDBD 19:13 → M ED INP 23:21 → M PCU 01-19 00:46
PROVIDERS: ADMIT Family Medicine; ATTEND Internal Medicine
DX: J15.1 Pneumonia due to Pseudomonas (principal); I82.A11 Acute embolism and thrombosis of right axillary vein; M32.9 Systemic lupus erythematosus, unspecified; M79.7 Fibromyalgia; G40.909 Epilepsy, unspecified, not intractable, without status epilepticus; R50.9 Fever, unspecified; N28.1 Cyst of kidney, acquired; K42.9 Umbilical hernia without obstruction or gangrene; R74.01 Elevation of levels of liver transaminase levels; Z79.899 Other long term (current) drug therapy; Z88.1 Allergy status to other antibiotic agents; R59.0 Localized enlarged lymph nodes; R63.4 Abnormal weight loss; D72.810 Lymphocytopenia; T36.8X5A Adverse effect of other systemic antibiotics, initial encounter; L27.0 Generalized skin eruption due to drugs and medicaments taken internally; Z77.22 Contact with and (suspected) exposure to environmental tobacco smoke (acute) (chronic); Z87.891 Personal history of nicotine dependence; Z91.018 Allergy to other foods

== ENCOUNTER 2023-01-26 09:11 | Inpatient (IN) | payer OTHER ==
[2023-01-25 14:39] VITALS: BP 168/82
[~2023-01-26] VITALS: Ht 162.6 cm; Wt 59.1 kg
[~2023-01-26 09:11] MED LIST changes: +ELIQ5TAB PO; +LEVO1TAB40 PO; +PROBCAP14 PO; +VENTAER INH
[2023-01-26] MEDS ORDERED: NS 1,000 ML IV SCH ×3 (09:35→23:25)
[2023-01-26 09:46] LABS: VENOUS BASE EXCESS 0.6 (-2.0-2.0); VENOUS HCO3 21.4 MEQ/L (23.0-27.0); VENOUS O2 SATURATION 98.8 % (60.0-80.0); VENOUS PARTIAL PRESSURE CO2 24.3 mmHg (38.0-50.0); VENOUS PARTIAL PRESSURE O2 131.8 mmHg (30.0-50.0); VENOUS PH 7.563 UNITS (7.330-7.430); VENOUS TOTAL CO2 22.2 MEQ/L (24.0-28.0)
[2023-01-26] MEDS ORDERED: ACET32TAB PO (09:46)
[2023-01-26] MEDS ORDERED: MUCI30TA5 PO (09:46)
[2023-01-26 09:50] LABS: HEMATOCRIT 34.1 % (36.0-47.0); HEMOGLOBIN 11.1 g/dl (12.0-15.5); MEAN CORPUSCULAR HEMOGLOBIN 26.2 pg (27.0-33.0); MEAN CORPUSCULAR HGB CONC 32.6 g/dl (32.0-36.5); MEAN CORPUSCULAR VOLUME 80.4 fl (80.0-96.0); PLATELET COUNT, AUTOMATED 380 10^3/uL (150-450); RED BLOOD COUNT 4.24 10^6/uL (4.00-5.40); WHITE BLOOD COUNT 1.9 10^3/uL (4.0-10.0)
[2023-01-26 10:03] LABS: INR 1.56
[2023-01-26 10:04] LABS: PARTIAL THROMBOPLASTIN TIME 37.7 SECONDS (24.8-34.2)
[2023-01-26 10:17] LABS: AMYLASE 27 U/L (30-118)
[2023-01-26 10:18] LABS: ALBUMIN 2.5 G/DL (3.2-5.2); ALKALINE PHOSPHATASE 57 U/L (46-116); ALT/SGPT 87 U/L (7.0-40); AST/SGOT 77 U/L (<34); BILIRUBIN,DIRECT 0.1 MG/DL (<0.4); BILIRUBIN,TOTAL 0.4 MG/DL (0.3-1.2); BLOOD UREA NITROGEN 9 MG/DL (9-23); CALCIUM LEVEL 7.3 MG/DL (8.5-10.1); CARBON DIOXIDE LEVEL 20 MMOL/L (20-31); CHLORIDE LEVEL 111 MMOL/L (98-107); CREATININE FOR GFR 0.42 MG/DL (0.55-1.30); GLOMERULAR FILTRATION RATE > 60.0 (>51); GLUCOSE, FASTING 95 MG/DL (60-100); POTASSIUM SERUM 3.1 MMOL/L (3.5-5.1); SODIUM LEVEL 141 MMOL/L (136-145); TOTAL PROTEIN 5.7 G/DL (5.7-8.2)
[2023-01-26] MEDS ORDERED: POTASSIUM CHLORIDE 10MEQ SR TABLET PO ONE (10:25)
[2023-01-26 10:28] LABS: ATYPICAL LYMPH 3 % (0-5); BASOPHILS 1 % (0-1); EOSINOPHILS 1 % (0-3); LYMPHOCYTES 18 % (16-44); METAMYELOCYTES 1 % (0-0); MONOCYTES 3 % (0-5); NEUTROPHILS 66 % (28-66)
[2023-01-26 10:31] LABS: PLATELET CLUMPS SMALL AMT; PLATELET ESTIMATE NORMAL (NORMAL)
[2023-01-26 10:32] LABS: ANISOCYTOSIS 1+; MICROCYTOSIS 1+; OVALOCYTES 1+
[2023-01-26 10:33] LABS: POIKILOCYTOSIS 1+
[2023-01-26 11:20] LABS: APPEARANCE, URINE CLEAR (CLEAR); BACTERIA, URINE AUTO NEGATIVE (NEGATIVE); BILIRUBIN, URINE AUTO NEGATIVE (NEGATIVE); BLOOD, URINE BLOOD NEGATIVE (NEGATIVE); COLOR, URINE STRAW (YELLOW); GLUCOSE, URINE (UA) AUTO NEGATIVE (NEGATIVE); KETONE, URINE AUTO NEGATIVE (NEGATIVE); LEUKOCYTE ESTERASE, URINE AUTO NEGATIVE (NEGATIVE); NITRITE, URINE AUTO NEGATIVE (NEGATIVE); PROTEIN, URINE AUTO NEGATIVE (NEGATIVE); RBC, URINE AUTO 0 /HPF (0-3); SPECIFIC GRAVITY URINE AUTO 1.006 (1.002-1.035); SQUAMOUS EPITHELIAL CELL UR AU 0 /HPF (0-6); UROBILINOGEN, URINE AUTO 0.2 mg/dL (0.0-2.0); WBC, URINE AUTO 0 /HPF (0-3)
[2023-01-26] MEDS ORDERED: PROBCAP14 PO (11:34)
[2023-01-26] MEDS ORDERED: LEVO1TAB38 PO (11:34)
[2023-01-26] MEDS ORDERED: ELIQ5TAB PO (11:34)
[2023-01-26] MEDS ORDERED: HOME MED LIST COMPLETE! XX SCH (11:35)
[2023-01-26] MEDS ORDERED: oxyCODONE 5MG TAB PO ONE (11:50)
[2023-01-26 13:36] LABS: BASO % 0.5 % (0.0-1.0); EOS # 0.1 10^3/uL (0.0-0.5); EOS % 2.6 % (0.0-3.0); LYMPH # 0.3 10^3/uL (1.5-5.0); LYMPH % 17.1 % (24.0-44.0); MONO # 0.1 10^3/uL (0.0-0.8); MONO % 5.2 % (2.0-8.0); NEUTROPHILS # 1.4 10^3/uL (1.5-8.5); NEUTROPHILS % 74.1 % (36.0-66.0)
[2023-01-26 13:42] LABS: PLATELET ESTIMATE NORMAL (NORMAL)
[2023-01-26] MEDS: ONDANSETRON 4MG 2ML VIAL IV PRN ×2 (13:53→21:26)
[2023-01-26 14:00] VITALS: BP 176/80
[2023-01-26] MEDS: VITAMIN D 1,000 INTERNATIONAL UNITS TABLET PO SCH (14:41)
[2023-01-26 14:52] VITALS: BP 168/82
[2023-01-26] MEDS ORDERED: RIZATRIPTAN BENZOATE 10 MG TAB PO PRN (18:00)
[2023-01-26] MEDS ORDERED: ALBUTEROL 90 MCG/ACT 8GM HFA INHALER INH PRN (18:00)
[2023-01-26 20:30] VITALS: BP 156/81
[2023-01-26] MEDS ORDERED: APIXABAN 5 MG TAB (ELIQUIS) PO SCH (21:00)
[2023-01-26 21:23] VITALS: BP 147/79
[2023-01-26] MEDS: HYDROXYCHLOROQUINE 200 MG TAB PO SCH (21:25)
[2023-01-26] MEDS: ZONISAMIDE 50 MG CAP (ZONEGRAN) PO SCH (21:25)
[2023-01-26] MEDS: APIXABAN 5 MG TAB (ELIQUIS) PO SCH (21:25)
[2023-01-26] MEDS: ACETAMINOPHEN TAB 650MG DOSE (2X325MG) PO PRN (21:26)
[2023-01-26] MEDS: oxyCODONE 5MG TAB PO PRN (21:29)
[2023-01-26 22:30] VITALS: BP 133/72
[2023-01-27 02:00] VITALS: BP 120/84
[2023-01-27 05:47] VITALS: BP 117/67
[2023-01-27] MEDS ORDERED: LevoFLOXacin 250 MG TABLET PO SCH (06:00)
[2023-01-27] MEDS: ACETAMINOPHEN TAB 650MG DOSE (2X325MG) PO PRN ×3 (06:01→22:37)
[2023-01-27 06:18] LABS: HEMATOCRIT 30.7 % (36.0-47.0); HEMOGLOBIN 9.8 g/dl (12.0-15.5); MEAN CORPUSCULAR HEMOGLOBIN 26.4 pg (27.0-33.0); MEAN CORPUSCULAR HGB CONC 31.9 g/dl (32.0-36.5); MEAN CORPUSCULAR VOLUME 82.7 fl (80.0-96.0); PLATELET COUNT, AUTOMATED 369 10^3/uL (150-450); RED BLOOD COUNT 3.71 10^6/uL (4.00-5.40); WHITE BLOOD COUNT 1.9 10^3/uL (4.0-10.0)
[2023-01-27 06:46] LABS: BLOOD UREA NITROGEN 7 MG/DL (9-23); CALCIUM LEVEL 7.7 MG/DL (8.5-10.1); CARBON DIOXIDE LEVEL 25 MMOL/L (20-31); CHLORIDE LEVEL 110 MMOL/L (98-107); CREATININE FOR GFR 0.54 MG/DL (0.55-1.30); GLOMERULAR FILTRATION RATE > 60.0 (>51); GLUCOSE, FASTING 95 MG/DL (60-100); POTASSIUM SERUM 4.6 MMOL/L (3.5-5.1); SODIUM LEVEL 140 MMOL/L (136-145)
[2023-01-27 07:06] LABS: ERYTHROCYTE SEDIMENTATION RATE 57 mm/hr (0-30)
[2023-01-27 07:26] LABS: ATYPICAL LYMPH 3 % (0-5); EOSINOPHILS 11 % (0-3); LYMPHOCYTES 20 % (16-44); MONOCYTES 3 % (0-5); MYELOCYTES 2 % (0-0); NEUTROPHILS 60 % (28-66)
[2023-01-27 07:29] LABS: ANISOCYTOSIS 1+; OVALOCYTES 1+; POLYCHROMASIA 1+
[2023-01-27 07:30] LABS: PLATELET ESTIMATE NORMAL (NORMAL)
[2023-01-27] MEDS: LORATADINE 10 MG TAB PO SCH (09:50)
[2023-01-27] MEDS: VITAMIN D 1,000 INTERNATIONAL UNITS TABLET PO SCH (09:50)
[2023-01-27] MEDS: APIXABAN 5 MG TAB (ELIQUIS) PO SCH (09:50)
[2023-01-27] MEDS: oxyCODONE 5MG TAB PO PRN (09:52)
[2023-01-27 10:00] VITALS: BP 147/85
[2023-01-27] MEDS: FLUTICASONE PROP 0.05% NASAL SPRAY 16 GM (FLONASE) NARES SCH (11:20)
[2023-01-27] MEDS: MAGIC MOUTHWASH SUSPENSION BTL SS PRN ×3 (11:20→22:57)
[2023-01-27 14:00] VITALS: BP 133/84
[2023-01-27] MEDS: NYSTATIN 500,000U/5ML SUSP UDC SS SCH ×2 (14:13→22:34)
[2023-01-27] MEDS: ONDANSETRON 4MG 2ML VIAL IV PRN (18:27)
[2023-01-27 18:30] VITALS: BP 137/81
[2023-01-27 20:30] VITALS: BP 135/80
[2023-01-27] MEDS ORDERED: PILL CUTTER 1 EACH XX PRN (20:35)
[2023-01-27] MEDS: ONDANSETRON 4MG ORAL DISINTEGRATING TAB SL PRN (20:42)
[2023-01-27] MEDS: ZONISAMIDE 50 MG CAP (ZONEGRAN) PO SCH (20:42)
[2023-01-27] MEDS: HYDROXYCHLOROQUINE 200 MG TAB PO SCH (20:42)
[2023-01-27] MEDS: guaiFENesin ER 600 MG TAB PO SCH (20:43)
[2023-01-27] MEDS ORDERED: IBUPROFEN 400MG TAB PO ONE (21:00)
[2023-01-28 01:45] VITALS: BP 129/73
[2023-01-28] MEDS: NYSTATIN 500,000U/5ML SUSP UDC SS SCH ×2 (05:28→13:46)
[2023-01-28] MEDS: oxyCODONE 5MG TAB PO PRN (05:29)
[2023-01-28 06:00] VITALS: BP 125/72
[2023-01-28 06:47] LABS: BASO % 0.6 % (0.0-1.0); EOS # 0.1 10^3/uL (0.0-0.5); EOS % 8.4 % (0.0-3.0); LYMPH # 0.4 10^3/uL (1.5-5.0); LYMPH % 24.6 % (24.0-44.0); MEAN CORPUSCULAR HEMOGLOBIN 26.7 pg (27.0-33.0); MEAN CORPUSCULAR HGB CONC 32.3 g/dl (32.0-36.5); MEAN CORPUSCULAR VOLUME 82.9 fl (80.0-96.0); MONO # 0.1 10^3/uL (0.0-0.8); MONO % 7.8 % (2.0-8.0); NEUTROPHILS % 56.8 % (36.0-66.0); PLATELET COUNT, AUTOMATED 385 10^3/uL (150-450); RED BLOOD COUNT 3.74 10^6/uL (4.00-5.40); WHITE BLOOD COUNT 1.7 10^3/uL (4.0-10.0)
[2023-01-28 07:15] LABS: BLOOD UREA NITROGEN 10 MG/DL (9-23); CALCIUM LEVEL 7.8 MG/DL (8.5-10.1); CARBON DIOXIDE LEVEL 28 MMOL/L (20-31); CHLORIDE LEVEL 108 MMOL/L (98-107); GLOMERULAR FILTRATION RATE > 60.0 (>51); GLUCOSE, FASTING 107 MG/DL (60-100); POTASSIUM SERUM 3.4 MMOL/L (3.5-5.1); SODIUM LEVEL 141 MMOL/L (136-145)
[2023-01-28] MEDS: FLUTICASONE PROP 0.05% NASAL SPRAY 16 GM (FLONASE) NARES SCH (08:55)
[2023-01-28] MEDS: guaiFENesin ER 600 MG TAB PO SCH ×2 (08:55→20:37)
[2023-01-28] MEDS: VITAMIN D 1,000 INTERNATIONAL UNITS TABLET PO SCH (08:55)
[2023-01-28] MEDS: LORATADINE 10 MG TAB PO SCH (08:55)
[2023-01-28] MEDS ORDERED: LIDOCAINE 1% MDV 20ML VIAL As Ordered ONE (10:52)
[2023-01-28] MEDS ORDERED: IBUPROFEN 400MG TAB PO PRN (11:15)
[2023-01-28] MEDS ORDERED: POTASSIUM CHLORIDE 10MEQ SR TABLET PO ONE (11:50)
[2023-01-28] MEDS: FAMOTIDINE 20 MG TAB PO SCH ×2 (12:04→20:37)
[2023-01-28] MEDS: ACETAMINOPHEN TAB 650MG DOSE (2X325MG) PO PRN ×2 (12:05→20:36)
[2023-01-28] MEDS: FLUCONAZOLE 100 MG TAB PO SCH (12:05)
[2023-01-28 20:15] VITALS: BP 124/71
[2023-01-28] MEDS: APIXABAN 5 MG TAB (ELIQUIS) PO SCH (20:37)
[2023-01-28] MEDS: HYDROXYCHLOROQUINE 200 MG TAB PO SCH (20:37)
[2023-01-28] MEDS: IBUPROFEN 400MG TAB PO PRN (20:37)
[2023-01-28 20:40] VITALS: BP 125/72
[2023-01-28] MEDS: ZONISAMIDE 50 MG CAP (ZONEGRAN) PO SCH (20:40)
[2023-01-29 02:00] VITALS: BP 116/60
[2023-01-29 06:00] VITALS: BP 113/60
[2023-01-29 06:27] LABS: BASO % 0.6 % (0.0-1.0); EOS # 0.2 10^3/uL (0.0-0.5); EOS % 9.2 % (0.0-3.0); HEMATOCRIT 31.8 % (36.0-47.0); LYMPH # 0.4 10^3/uL (1.5-5.0); LYMPH % 24.3 % (24.0-44.0); MEAN CORPUSCULAR HEMOGLOBIN 26.2 pg (27.0-33.0); MEAN CORPUSCULAR HGB CONC 31.4 g/dl (32.0-36.5); MEAN CORPUSCULAR VOLUME 83.5 fl (80.0-96.0); MONO # 0.1 10^3/uL (0.0-0.8); MONO % 7.5 % (2.0-8.0); NEUTROPHILS % 56.7 % (36.0-66.0); PLATELET COUNT, AUTOMATED 389 10^3/uL (150-450); RED BLOOD COUNT 3.81 10^6/uL (4.00-5.40); WHITE BLOOD COUNT 1.7 10^3/uL (4.0-10.0)
[2023-01-29 07:03] LABS: BLOOD UREA NITROGEN 17 MG/DL (9-23); CALCIUM LEVEL 8.2 MG/DL (8.5-10.1); CARBON DIOXIDE LEVEL 27 MMOL/L (20-31); CHLORIDE LEVEL 107 MMOL/L (98-107); CREATININE FOR GFR 0.62 MG/DL (0.55-1.30); GLOMERULAR FILTRATION RATE > 60.0 (>51); GLUCOSE, FASTING 94 MG/DL (60-100); POTASSIUM SERUM 3.8 MMOL/L (3.5-5.1); SODIUM LEVEL 141 MMOL/L (136-145)
[2023-01-29] MEDS: oxyCODONE 5MG TAB PO PRN (08:37)
[2023-01-29] MEDS: VITAMIN D 1,000 INTERNATIONAL UNITS TABLET PO SCH (08:37)
[2023-01-29] MEDS: guaiFENesin ER 600 MG TAB PO SCH ×2 (08:37→21:05)
[2023-01-29] MEDS: LORATADINE 10 MG TAB PO SCH (08:38)
[2023-01-29] MEDS: FAMOTIDINE 20 MG TAB PO SCH ×2 (08:38→21:04)
[2023-01-29] MEDS: APIXABAN 5 MG TAB (ELIQUIS) PO SCH ×2 (08:38→21:04)
[2023-01-29] MEDS: FLUTICASONE PROP 0.05% NASAL SPRAY 16 GM (FLONASE) NARES SCH (08:38)
[2023-01-29] MEDS: FLUCONAZOLE 100 MG TAB PO SCH (08:38)
[2023-01-29 10:00] VITALS: BP 96/55
[2023-01-29 10:41] LABS: IMMUNOGLOBULIN G 1624 MG/DL (650-1600)
[2023-01-29 14:00] VITALS: BP 107/54
[2023-01-29] MEDS: IBUPROFEN 400MG TAB PO PRN (16:52)
[2023-01-29] MEDS: ACETAMINOPHEN TAB 650MG DOSE (2X325MG) PO PRN (17:48)
[2023-01-29 18:00] VITALS: BP 103/60
[2023-01-29] MEDS: ZONISAMIDE 50 MG CAP (ZONEGRAN) PO SCH (21:04)
[2023-01-29] MEDS: HYDROXYCHLOROQUINE 200 MG TAB PO SCH (21:04)
[2023-01-29 22:00] VITALS: BP 103/58
[2023-01-30 02:00] VITALS: BP 101/57
[2023-01-30 05:48] LABS: BASO % 1.2 % (0.0-1.0); EOS # 0.2 10^3/uL (0.0-0.5); EOS % 9.8 % (0.0-3.0); HEMATOCRIT 31.6 % (36.0-47.0); HEMOGLOBIN 10.1 g/dl (12.0-15.5); LYMPH # 0.4 10^3/uL (1.5-5.0); LYMPH % 23.3 % (24.0-44.0); MEAN CORPUSCULAR HEMOGLOBIN 26.4 pg (27.0-33.0); MEAN CORPUSCULAR VOLUME 82.5 fl (80.0-96.0); MONO # 0.1 10^3/uL (0.0-0.8); MONO % 4.9 % (2.0-8.0); NEUTROPHILS % 57.7 % (36.0-66.0); PLATELET COUNT, AUTOMATED 417 10^3/uL (150-450); RED BLOOD COUNT 3.83 10^6/uL (4.00-5.40); WHITE BLOOD COUNT 1.6 10^3/uL (4.0-10.0)
[2023-01-30 06:12] LABS: BLOOD UREA NITROGEN 21 MG/DL (9-23); CALCIUM LEVEL 8.1 MG/DL (8.5-10.1); CARBON DIOXIDE LEVEL 28 MMOL/L (20-31); CHLORIDE LEVEL 105 MMOL/L (98-107); CREATININE FOR GFR 0.61 MG/DL (0.55-1.30); GLOMERULAR FILTRATION RATE > 60.0 (>51); GLUCOSE, FASTING 98 MG/DL (60-100); POTASSIUM SERUM 3.8 MMOL/L (3.5-5.1); SODIUM LEVEL 140 MMOL/L (136-145)
[2023-01-30 06:21] LABS: NEUTROPHILS # 0.9 10^3/uL (1.5-8.5)
[2023-01-30 07:00] VITALS: BP 97/58
[2023-01-30] MEDS: guaiFENesin ER 600 MG TAB PO SCH ×2 (08:32→20:42)
[2023-01-30] MEDS: APIXABAN 5 MG TAB (ELIQUIS) PO SCH ×2 (08:32→20:43)
[2023-01-30] MEDS: LORATADINE 10 MG TAB PO SCH (08:33)
[2023-01-30] MEDS: VITAMIN D 1,000 INTERNATIONAL UNITS TABLET PO SCH (08:33)
[2023-01-30] MEDS: FAMOTIDINE 20 MG TAB PO SCH ×2 (08:33→20:42)
[2023-01-30] MEDS: FLUTICASONE PROP 0.05% NASAL SPRAY 16 GM (FLONASE) NARES SCH (08:33)
[2023-01-30] MEDS: FLUCONAZOLE 100 MG TAB PO SCH (08:33)
[2023-01-30] MEDS: oxyCODONE 5MG TAB PO PRN (08:34)
[2023-01-30 09:44] LABS: C REACTIVE PROTEIN QUANTITATIV 4.4 MG/DL (<1.0)
[2023-01-30 09:46] LABS: COMPLEMENT C3 77.9 MG/DL (90.0-170.0)
[2023-01-30] MEDS: IBUPROFEN 400MG TAB PO PRN (13:44)
[2023-01-30 14:00] VITALS: BP 95/54
[2023-01-30] MEDS ORDERED: NS 1,000 ML IV ONE (15:10)
[2023-01-30 16:25] VITALS: BP 114/72
[2023-01-30] MEDS: NS 1,000 ML IV SCH (16:25)
[2023-01-30] MEDS: MIDODRINE 5 MG TAB PO SCH (16:26)
[2023-01-30 20:00] VITALS: BP 108/66
[2023-01-30] MEDS: HYDROXYCHLOROQUINE 200 MG TAB PO SCH (20:42)
[2023-01-30] MEDS: ZONISAMIDE 50 MG CAP (ZONEGRAN) PO SCH (20:43)
[2023-01-31] MEDS: NS 1,000 ML IV SCH (02:14)
[2023-01-31 06:00] VITALS: BP 106/64
[2023-01-31 06:03] LABS: BASO % 0.7 % (0.0-1.0); EOS # 0.1 10^3/uL (0.0-0.5); EOS % 8.3 % (0.0-3.0); HEMATOCRIT 28.9 % (36.0-47.0); LYMPH # 0.3 10^3/uL (1.5-5.0); LYMPH % 22.9 % (24.0-44.0); MEAN CORPUSCULAR HEMOGLOBIN 26.2 pg (27.0-33.0); MEAN CORPUSCULAR HGB CONC 31.1 g/dl (32.0-36.5); MONO # 0.1 10^3/uL (0.0-0.8); MONO % 5.6 % (2.0-8.0); NEUTROPHILS % 60.4 % (36.0-66.0); PLATELET COUNT, AUTOMATED 333 10^3/uL (150-450); RED BLOOD COUNT 3.44 10^6/uL (4.00-5.40); WHITE BLOOD COUNT 1.4 10^3/uL (4.0-10.0)
[2023-01-31 06:31] LABS: NEUTROPHILS # 0.9 10^3/uL (1.5-8.5)
[2023-01-31 06:33] LABS: BLOOD UREA NITROGEN 13 MG/DL (9-23); CALCIUM LEVEL 7.3 MG/DL (8.5-10.1); CARBON DIOXIDE LEVEL 24 MMOL/L (20-31); CHLORIDE LEVEL 109 MMOL/L (98-107); CREATININE FOR GFR 0.51 MG/DL (0.55-1.30); GLOMERULAR FILTRATION RATE > 60.0 (>51); GLUCOSE, FASTING 89 MG/DL (60-100); SODIUM LEVEL 140 MMOL/L (136-145)
[2023-01-31] MEDS: APIXABAN 5 MG TAB (ELIQUIS) PO SCH ×2 (09:32→20:54)
[2023-01-31] MEDS: guaiFENesin ER 600 MG TAB PO SCH ×2 (09:32→20:54)
[2023-01-31] MEDS: LORATADINE 10 MG TAB PO SCH (09:32)
[2023-01-31] MEDS: FAMOTIDINE 20 MG TAB PO SCH ×2 (09:32→20:55)
[2023-01-31] MEDS: FLUCONAZOLE 100 MG TAB PO SCH (09:32)
[2023-01-31] MEDS: VITAMIN D 1,000 INTERNATIONAL UNITS TABLET PO SCH (09:33)
[2023-01-31] MEDS: MIDODRINE 5 MG TAB PO SCH ×3 (09:34→16:30)
[2023-01-31] MEDS: FLUTICASONE PROP 0.05% NASAL SPRAY 16 GM (FLONASE) NARES SCH (09:35)
[2023-01-31] MEDS: oxyCODONE 5MG TAB PO PRN (11:57)
[2023-01-31 14:00] VITALS: BP 128/68
[2023-01-31] MEDS: IBUPROFEN 400MG TAB PO PRN (18:14)
[2023-01-31] MEDS: ZONISAMIDE 50 MG CAP (ZONEGRAN) PO SCH (20:54)
[2023-01-31] MEDS: HYDROXYCHLOROQUINE 200 MG TAB PO SCH (20:55)
[2023-01-31 21:30] VITALS: BP 102/56
[2023-02-01 06:00] VITALS: BP 110/61
[2023-02-01 06:07] LABS: BASO % 0.4 % (0.0-1.0); EOS # 0.2 10^3/uL (0.0-0.5); EOS % 7.9 % (0.0-3.0); HEMATOCRIT 30.6 % (36.0-47.0); HEMOGLOBIN 9.5 g/dl (12.0-15.5); LYMPH # 0.4 10^3/uL (1.5-5.0); LYMPH % 16.2 % (24.0-44.0); MEAN CORPUSCULAR HEMOGLOBIN 25.6 pg (27.0-33.0); MEAN CORPUSCULAR VOLUME 82.5 fl (80.0-96.0); MONO # 0.1 10^3/uL (0.0-0.8); MONO % 4.8 % (2.0-8.0); NEUTROPHILS # 1.6 10^3/uL (1.5-8.5); NEUTROPHILS % 69.4 % (36.0-66.0); PLATELET COUNT, AUTOMATED 352 10^3/uL (150-450); RED BLOOD COUNT 3.71 10^6/uL (4.00-5.40); WHITE BLOOD COUNT 2.3 10^3/uL (4.0-10.0)
[2023-02-01 06:42] LABS: BLOOD UREA NITROGEN 11 MG/DL (9-23); CALCIUM LEVEL 7.8 MG/DL (8.5-10.1); CARBON DIOXIDE LEVEL 24 MMOL/L (20-31); CHLORIDE LEVEL 108 MMOL/L (98-107); CREATININE FOR GFR 0.52 MG/DL (0.55-1.30); GLOMERULAR FILTRATION RATE > 60.0 (>51); GLUCOSE, FASTING 110 MG/DL (60-100); POTASSIUM SERUM 3.6 MMOL/L (3.5-5.1); SODIUM LEVEL 141 MMOL/L (136-145)
[2023-02-01] MEDS: FAMOTIDINE 20 MG TAB PO SCH ×2 (08:58→20:32)
[2023-02-01] MEDS: VITAMIN D 1,000 INTERNATIONAL UNITS TABLET PO SCH (08:58)
[2023-02-01] MEDS: guaiFENesin ER 600 MG TAB PO SCH ×2 (08:58→20:32)
[2023-02-01] MEDS: LORATADINE 10 MG TAB PO SCH (08:58)
[2023-02-01] MEDS: FLUCONAZOLE 100 MG TAB PO SCH (08:58)
[2023-02-01] MEDS: APIXABAN 5 MG TAB (ELIQUIS) PO SCH ×2 (08:58→20:32)
[2023-02-01] MEDS: MIDODRINE 5 MG TAB PO SCH ×3 (08:59→15:44)
[2023-02-01] MEDS: FLUTICASONE PROP 0.05% NASAL SPRAY 16 GM (FLONASE) NARES SCH (08:59)
[2023-02-01] MEDS ORDERED: ANEXSIA, NORCO 7.5MG/325MG TABLET(HYDROCODONE/APAP) PO ONE (10:20)
[2023-02-01] MEDS: TRIAMCINOLONE ACET 0.1% OINTMENT 15GM TOP SCH ×2 (13:06→20:33)
[2023-02-01 14:00] VITALS: BP 114/56
[2023-02-01] MEDS: IBUPROFEN 400MG TAB PO PRN (16:08)
[2023-02-01] MEDS: ACETAMINOPHEN TAB 650MG DOSE (2X325MG) PO PRN (17:39)
[2023-02-01] MEDS: ZONISAMIDE 50 MG CAP (ZONEGRAN) PO SCH (20:32)
[2023-02-01] MEDS: HYDROXYCHLOROQUINE 200 MG TAB PO SCH (20:32)
[2023-02-01 20:41] VITALS: BP 115/60
[2023-02-02] MEDS: ANEXSIA, NORCO 7.5MG/325MG TABLET(HYDROCODONE/APAP) PO PRN (03:12)
[2023-02-02 06:22] VITALS: BP 113/61
[2023-02-02 08:19] LABS: BASO % 0.4 % (0.0-1.0); EOS # 0.2 10^3/uL (0.0-0.5); EOS % 7.1 % (0.0-3.0); HEMOGLOBIN 9.5 g/dl (12.0-15.5); LYMPH # 0.3 10^3/uL (1.5-5.0); LYMPH % 14.7 % (24.0-44.0); MEAN CORPUSCULAR HEMOGLOBIN 26.2 pg (27.0-33.0); MEAN CORPUSCULAR HGB CONC 31.7 g/dl (32.0-36.5); MEAN CORPUSCULAR VOLUME 82.6 fl (80.0-96.0); MONO # 0.1 10^3/uL (0.0-0.8); NEUTROPHILS # 1.6 10^3/uL (1.5-8.5); PLATELET COUNT, AUTOMATED 365 10^3/uL (150-450); RED BLOOD COUNT 3.63 10^6/uL (4.00-5.40); WHITE BLOOD COUNT 2.2 10^3/uL (4.0-10.0)
[2023-02-02 08:42] LABS: BLOOD UREA NITROGEN 10 MG/DL (9-23); CALCIUM LEVEL 7.7 MG/DL (8.5-10.1); CARBON DIOXIDE LEVEL 25 MMOL/L (20-31); CHLORIDE LEVEL 106 MMOL/L (98-107); CREATININE FOR GFR 0.48 MG/DL (0.55-1.30); GLOMERULAR FILTRATION RATE > 60.0 (>51); GLUCOSE, FASTING 97 MG/DL (60-100); SODIUM LEVEL 139 MMOL/L (136-145)
[2023-02-02] MEDS: APIXABAN 5 MG TAB (ELIQUIS) PO SCH ×2 (08:58→20:33)
[2023-02-02] MEDS: LORATADINE 10 MG TAB PO SCH (08:59)
[2023-02-02] MEDS: FAMOTIDINE 20 MG TAB PO SCH ×2 (08:59→20:33)
[2023-02-02] MEDS: MIDODRINE 5 MG TAB PO SCH ×3 (08:59→17:10)
[2023-02-02] MEDS: guaiFENesin ER 600 MG TAB PO SCH ×2 (08:59→20:33)
[2023-02-02] MEDS: FLUTICASONE PROP 0.05% NASAL SPRAY 16 GM (FLONASE) NARES SCH (09:00)
[2023-02-02] MEDS: VITAMIN D 1,000 INTERNATIONAL UNITS TABLET PO SCH (09:00)
[2023-02-02] MEDS: FLUCONAZOLE 100 MG TAB PO SCH (09:00)
[2023-02-02] MEDS: TRIAMCINOLONE ACET 0.1% OINTMENT 15GM TOP SCH ×2 (09:01→20:34)
[2023-02-02 14:00] VITALS: BP 141/66
[2023-02-02] MEDS: ACETAMINOPHEN TAB 650MG DOSE (2X325MG) PO PRN (14:59)
[2023-02-02 16:39] VITALS: BP 113/58
[2023-02-02 20:00] VITALS: BP 118/63
[2023-02-02] MEDS: HYDROXYCHLOROQUINE 200 MG TAB PO SCH (20:33)
[2023-02-02] MEDS: ZONISAMIDE 50 MG CAP (ZONEGRAN) PO SCH (20:33)
[2023-02-03] MEDS: ACETAMINOPHEN TAB 650MG DOSE (2X325MG) PO PRN ×2 (00:33→16:05)
[2023-02-03 06:00] VITALS: BP 117/61
[2023-02-03] MEDS: MIDODRINE 5 MG TAB PO SCH ×4 (08:00→18:00)
[2023-02-03] MEDS ORDERED: NS 1,000 ML IV SCH (08:50)
[2023-02-03] MEDS: guaiFENesin ER 600 MG TAB PO SCH ×2 (08:57→21:32)
[2023-02-03] MEDS: LORATADINE 10 MG TAB PO SCH (08:58)
[2023-02-03] MEDS: APIXABAN 5 MG TAB (ELIQUIS) PO SCH ×2 (08:58→21:32)
[2023-02-03] MEDS: FLUCONAZOLE 100 MG TAB PO SCH (08:59)
[2023-02-03] MEDS: FAMOTIDINE 20 MG TAB PO SCH ×2 (09:00→21:32)
[2023-02-03] MEDS: FLUTICASONE PROP 0.05% NASAL SPRAY 16 GM (FLONASE) NARES SCH (09:00)
[2023-02-03] MEDS: TRIAMCINOLONE ACET 0.1% OINTMENT 15GM TOP SCH ×2 (09:00→21:33)
[2023-02-03] MEDS: VITAMIN D 1,000 INTERNATIONAL UNITS TABLET PO SCH (09:00)
[2023-02-03] MEDS ORDERED: ISOVUE-370 76% 100ML VIAL As Ordered ONE (09:40)
[2023-02-03] MEDS: NYSTATIN 500,000U/5ML SUSP UDC PO SCH ×4 (10:39→18:00)
[2023-02-03 14:00] VITALS: BP 108/58
[2023-02-03] MEDS ORDERED: FUROSEMIDE 20MG/2ML VIAL IV ONE (16:00)
[2023-02-03] MEDS: ONDANSETRON 4MG ORAL DISINTEGRATING TAB SL PRN (16:37)
[2023-02-03 17:35] LABS: CREATININE,RANDOM URINE 20.2 MG/DL
[2023-02-03] MEDS ORDERED: ONDANSETRON 4MG 2ML VIAL IV PRN (18:00)
[2023-02-03 18:01] LABS: TOTAL PROTEIN,RANDOM URINE < 6.0 MG/DL (0.0-14.0)
[2023-02-03 21:00] VITALS: BP 110/58
[2023-02-03] MEDS: ZONISAMIDE 50 MG CAP (ZONEGRAN) PO SCH (21:32)
[2023-02-03] MEDS: HYDROXYCHLOROQUINE 200 MG TAB PO SCH (21:32)
[2023-02-04 00:01] VITALS: BP 112/59
[2023-02-04] MEDS: ACETAMINOPHEN TAB 650MG DOSE (2X325MG) PO PRN (00:15)
[2023-02-04 06:00] VITALS: BP 109/59
[2023-02-04] MEDS ORDERED: CIPROFLOXACIN 400 MG in IV 1 EA IV SCH (07:05)
[2023-02-04] MEDS: LORATADINE 10 MG TAB PO SCH (08:29)
[2023-02-04] MEDS: FAMOTIDINE 20 MG TAB PO SCH ×2 (08:29→20:54)
[2023-02-04] MEDS: VITAMIN D 1,000 INTERNATIONAL UNITS TABLET PO SCH (08:29)
[2023-02-04] MEDS: NYSTATIN 500,000U/5ML SUSP UDC PO SCH ×4 (08:29→20:54)
[2023-02-04] MEDS: APIXABAN 5 MG TAB (ELIQUIS) PO SCH ×2 (08:29→20:55)
[2023-02-04] MEDS: guaiFENesin ER 600 MG TAB PO SCH ×2 (08:29→20:55)
[2023-02-04] MEDS: TRIAMCINOLONE ACET 0.1% OINTMENT 15GM TOP SCH ×2 (08:31→20:55)
[2023-02-04] MEDS: FLUTICASONE PROP 0.05% NASAL SPRAY 16 GM (FLONASE) NARES SCH (08:31)
[2023-02-04] MEDS: metroNIDAZOLE 500 MG in IV 1 EA IV SCH ×2 (08:46→17:36)
[2023-02-04] MEDS: cefTRIAXone SOD 1 GM in D5W MINI-BAG PLUS 50 ML IV SCH (10:53)
[2023-02-04] MEDS: LACTOBACILLUS ACIDOPHILUS CAP (BACID) PO SCH ×2 (10:53→17:02)
[2023-02-04] MEDS: MIDODRINE 5 MG TAB PO SCH ×2 (12:30→15:55)
[2023-02-04] MEDS: methylPREDNISolone 40MG 1ML VIAL IV SCH (12:31)
[2023-02-04 14:00] VITALS: BP 125/64
[2023-02-04] MEDS: ZONISAMIDE 50 MG CAP (ZONEGRAN) PO SCH (20:54)
[2023-02-04] MEDS: HYDROXYCHLOROQUINE 200 MG TAB PO SCH (20:55)
[2023-02-04 21:00] VITALS: BP 120/64
[2023-02-05] MEDS: methylPREDNISolone 40MG 1ML VIAL IV SCH ×2 (00:05→12:14)
[2023-02-05] MEDS: metroNIDAZOLE 500 MG in IV 1 EA IV SCH ×2 (00:06→08:47)
[2023-02-05 04:40] VITALS: BP 119/63
[2023-02-05 08:38] LABS: BASO % 0.5 % (0.0-1.0); HEMATOCRIT 33.4 % (36.0-47.0); HEMOGLOBIN 10.6 g/dl (12.0-15.5); LYMPH # 0.3 10^3/uL (1.5-5.0); LYMPH % 14.9 % (24.0-44.0); MEAN CORPUSCULAR HEMOGLOBIN 26.3 pg (27.0-33.0); MEAN CORPUSCULAR HGB CONC 31.7 g/dl (32.0-36.5); MEAN CORPUSCULAR VOLUME 82.9 fl (80.0-96.0); MONO # 0.1 10^3/uL (0.0-0.8); MONO % 2.3 % (2.0-8.0); NEUTROPHILS # 1.8 10^3/uL (1.5-8.5); NEUTROPHILS % 81.4 % (36.0-66.0); PLATELET COUNT, AUTOMATED 429 10^3/uL (150-450); RED BLOOD COUNT 4.03 10^6/uL (4.00-5.40); WHITE BLOOD COUNT 2.2 10^3/uL (4.0-10.0)
[2023-02-05] MEDS: FAMOTIDINE 20 MG TAB PO SCH ×2 (08:47→21:12)
[2023-02-05] MEDS: MIDODRINE 5 MG TAB PO SCH ×3 (08:47→17:00)
[2023-02-05] MEDS: LACTOBACILLUS ACIDOPHILUS CAP (BACID) PO SCH ×2 (08:47→17:00)
[2023-02-05] MEDS: LORATADINE 10 MG TAB PO SCH (08:47)
[2023-02-05] MEDS: guaiFENesin ER 600 MG TAB PO SCH ×2 (08:48→21:12)
[2023-02-05] MEDS: APIXABAN 5 MG TAB (ELIQUIS) PO SCH ×2 (08:48→21:12)
[2023-02-05] MEDS: VITAMIN D 1,000 INTERNATIONAL UNITS TABLET PO SCH (08:48)
[2023-02-05] MEDS: FLUTICASONE PROP 0.05% NASAL SPRAY 16 GM (FLONASE) NARES SCH (08:49)
[2023-02-05] MEDS: TRIAMCINOLONE ACET 0.1% OINTMENT 15GM TOP SCH ×2 (08:49→21:12)
[2023-02-05 09:18] LABS: ALBUMIN 2.7 G/DL (3.2-5.2); ALKALINE PHOSPHATASE 66 U/L (46-116); ALT/SGPT 19 U/L (7.0-40); AST/SGOT 24 U/L (<34); BILIRUBIN,TOTAL 0.3 MG/DL (0.3-1.2); BLOOD UREA NITROGEN 17 MG/DL (9-23); CALCIUM LEVEL 8.8 MG/DL (8.5-10.1); CARBON DIOXIDE LEVEL 24 MMOL/L (20-31); CHLORIDE LEVEL 105 MMOL/L (98-107); CREATININE FOR GFR 0.47 MG/DL (0.55-1.30); GLOMERULAR FILTRATION RATE > 60.0 (>51); GLUCOSE, FASTING 177 MG/DL (60-100); MAGNESIUM LEVEL 1.8 MG/DL (1.8-2.4); POTASSIUM SERUM 4.1 MMOL/L (3.5-5.1); SODIUM LEVEL 137 MMOL/L (136-145); TOTAL PROTEIN 6.9 G/DL (5.7-8.2)
[2023-02-05] MEDS: cefTRIAXone SOD 1 GM in D5W MINI-BAG PLUS 50 ML IV SCH (10:34)
[2023-02-05] MEDS: NYSTATIN 500,000U/5ML SUSP UDC PO SCH ×4 (10:34→21:12)
[2023-02-05 14:00] VITALS: BP 126/68
[2023-02-05] MEDS: metroNIDAZOLE (FLAGYL) 500MG TABLET PO SCH (17:00)
[2023-02-05 21:00] VITALS: BP 124/67
[2023-02-05] MEDS: ZONISAMIDE 50 MG CAP (ZONEGRAN) PO SCH (21:12)
[2023-02-05] MEDS: HYDROXYCHLOROQUINE 200 MG TAB PO SCH (21:12)
[2023-02-06] MEDS: metroNIDAZOLE (FLAGYL) 500MG TABLET PO SCH ×3 (00:19→16:47)
[2023-02-06] MEDS: methylPREDNISolone 40MG 1ML VIAL IV SCH ×2 (00:20→12:30)
[2023-02-06 04:30] VITALS: BP 122/68
[2023-02-06 06:30] LABS: HEMATOCRIT 33.5 % (36.0-47.0); LYMPH # 0.4 10^3/uL (1.5-5.0); LYMPH % 6.1 % (24.0-44.0); MEAN CORPUSCULAR HEMOGLOBIN 27.1 pg (27.0-33.0); MEAN CORPUSCULAR HGB CONC 32.8 g/dl (32.0-36.5); MEAN CORPUSCULAR VOLUME 82.5 fl (80.0-96.0); MONO # 0.2 10^3/uL (0.0-0.8); MONO % 3.1 % (2.0-8.0); NEUTROPHILS # 6.1 10^3/uL (1.5-8.5); NEUTROPHILS % 89.9 % (36.0-66.0); PLATELET COUNT, AUTOMATED 498 10^3/uL (150-450); RED BLOOD COUNT 4.06 10^6/uL (4.00-5.40); WHITE BLOOD COUNT 6.7 10^3/uL (4.0-10.0)
[2023-02-06 07:01] LABS: BLOOD UREA NITROGEN 28 MG/DL (9-23); CALCIUM LEVEL 8.9 MG/DL (8.5-10.1); CARBON DIOXIDE LEVEL 22 MMOL/L (20-31); CHLORIDE LEVEL 104 MMOL/L (98-107); CREATININE FOR GFR 0.56 MG/DL (0.55-1.30); GLOMERULAR FILTRATION RATE > 60.0 (>51); GLUCOSE, FASTING 115 MG/DL (60-100); MAGNESIUM LEVEL 1.8 MG/DL (1.8-2.4); POTASSIUM SERUM 4.4 MMOL/L (3.5-5.1); SODIUM LEVEL 138 MMOL/L (136-145)
[2023-02-06 08:00] VITALS: BP 109/66
[2023-02-06] MEDS: MIDODRINE 5 MG TAB PO SCH ×3 (08:59→16:47)
[2023-02-06] MEDS: LACTOBACILLUS ACIDOPHILUS CAP (BACID) PO SCH ×2 (09:00→17:22)
[2023-02-06] MEDS: LORATADINE 10 MG TAB PO SCH (09:00)
[2023-02-06] MEDS: FAMOTIDINE 20 MG TAB PO SCH ×2 (09:00→21:21)
[2023-02-06] MEDS: NYSTATIN 500,000U/5ML SUSP UDC PO SCH ×4 (09:01→21:21)
[2023-02-06] MEDS: VITAMIN D 1,000 INTERNATIONAL UNITS TABLET PO SCH (09:01)
[2023-02-06] MEDS: guaiFENesin ER 600 MG TAB PO SCH ×2 (09:01→21:20)
[2023-02-06] MEDS: FLUTICASONE PROP 0.05% NASAL SPRAY 16 GM (FLONASE) NARES SCH (09:02)
[2023-02-06] MEDS: APIXABAN 5 MG TAB (ELIQUIS) PO SCH ×2 (09:02→21:21)
[2023-02-06] MEDS: cefTRIAXone SOD 1 GM in D5W MINI-BAG PLUS 50 ML IV SCH (10:34)
[2023-02-06 14:00] VITALS: BP 122/67
[2023-02-06 21:00] VITALS: BP 128/68
[2023-02-06] MEDS: ZONISAMIDE 50 MG CAP (ZONEGRAN) PO SCH (21:20)
[2023-02-06] MEDS: HYDROXYCHLOROQUINE 200 MG TAB PO SCH (21:20)
[2023-02-07] MEDS: methylPREDNISolone 40MG 1ML VIAL IV SCH (00:07)
[2023-02-07] MEDS: metroNIDAZOLE (FLAGYL) 500MG TABLET PO SCH ×3 (00:08→16:33)
[2023-02-07 05:20] VITALS: BP 124/69
[2023-02-07 06:08] LABS: ANTI DS-DNA AB Negative (Negative); ANTI SMITH(Sm) AB 23 Units (<20)
[2023-02-07 06:31] LABS: HEMATOCRIT 33.8 % (36.0-47.0); HEMOGLOBIN 10.9 g/dl (12.0-15.5); LYMPH # 0.5 10^3/uL (1.5-5.0); LYMPH % 9.7 % (24.0-44.0); MEAN CORPUSCULAR HEMOGLOBIN 26.4 pg (27.0-33.0); MEAN CORPUSCULAR HGB CONC 32.2 g/dl (32.0-36.5); MEAN CORPUSCULAR VOLUME 81.8 fl (80.0-96.0); MONO # 0.2 10^3/uL (0.0-0.8); MONO % 4.3 % (2.0-8.0); NEUTROPHILS # 4.1 10^3/uL (1.5-8.5); NEUTROPHILS % 84.6 % (36.0-66.0); PLATELET COUNT, AUTOMATED 476 10^3/uL (150-450); RED BLOOD COUNT 4.13 10^6/uL (4.00-5.40); WHITE BLOOD COUNT 4.8 10^3/uL (4.0-10.0)
[2023-02-07 07:04] LABS: BLOOD UREA NITROGEN 31 MG/DL (9-23); CARBON DIOXIDE LEVEL 23 MMOL/L (20-31); CHLORIDE LEVEL 107 MMOL/L (98-107); CREATININE FOR GFR 0.51 MG/DL (0.55-1.30); GLOMERULAR FILTRATION RATE > 60.0 (>51); GLUCOSE, FASTING 120 MG/DL (60-100); MAGNESIUM LEVEL 1.9 MG/DL (1.8-2.4); POTASSIUM SERUM 4.3 MMOL/L (3.5-5.1); SODIUM LEVEL 140 MMOL/L (136-145)
[2023-02-07] MEDS: NYSTATIN 500,000U/5ML SUSP UDC PO SCH ×4 (08:26→20:18)
[2023-02-07] MEDS: MIDODRINE 5 MG TAB PO SCH ×3 (08:26→16:33)
[2023-02-07] MEDS: LACTOBACILLUS ACIDOPHILUS CAP (BACID) PO SCH ×2 (08:26→18:00)
[2023-02-07] MEDS: guaiFENesin ER 600 MG TAB PO SCH ×2 (08:27→20:18)
[2023-02-07] MEDS: FAMOTIDINE 20 MG TAB PO SCH ×2 (08:27→20:18)
[2023-02-07] MEDS: FLUTICASONE PROP 0.05% NASAL SPRAY 16 GM (FLONASE) NARES SCH (08:27)
[2023-02-07] MEDS: APIXABAN 5 MG TAB (ELIQUIS) PO SCH ×2 (08:27→20:17)
[2023-02-07] MEDS: LORATADINE 10 MG TAB PO SCH (08:27)
[2023-02-07] MEDS: VITAMIN D 1,000 INTERNATIONAL UNITS TABLET PO SCH (08:27)
[2023-02-07] MEDS: cefTRIAXone SOD 1 GM in D5W MINI-BAG PLUS 50 ML IV SCH (10:00)
[2023-02-07] MEDS: CEFDINIR 300 MG CAP (OMNICEF) PO SCH ×2 (12:02→20:17)
[2023-02-07] MEDS: FLUCONAZOLE 100 MG TAB PO SCH (12:02)
[2023-02-07] MEDS: predniSONE 20 MG TAB PO SCH (12:04)
[2023-02-07 14:00] VITALS: BP 134/77
[2023-02-07] MEDS: ZONISAMIDE 50 MG CAP (ZONEGRAN) PO SCH (20:17)
[2023-02-07] MEDS: HYDROXYCHLOROQUINE 200 MG TAB PO SCH (20:18)
[2023-02-07 20:50] VITALS: BP 111/71
[2023-02-08] MEDS: metroNIDAZOLE (FLAGYL) 500MG TABLET PO SCH ×2 (01:14→08:45)
[2023-02-08 05:18] VITALS: BP 119/60
[2023-02-08 06:58] LABS: BASO % 0.2 % (0.0-1.0); EOS % 0.4 % (0.0-3.0); HEMOGLOBIN 11.1 g/dl (12.0-15.5); LYMPH % 19.8 % (24.0-44.0); MEAN CORPUSCULAR HEMOGLOBIN 26.9 pg (27.0-33.0); MEAN CORPUSCULAR HGB CONC 32.6 g/dl (32.0-36.5); MEAN CORPUSCULAR VOLUME 82.3 fl (80.0-96.0); MONO # 0.3 10^3/uL (0.0-0.8); MONO % 5.7 % (2.0-8.0); NEUTROPHILS # 3.5 10^3/uL (1.5-8.5); NEUTROPHILS % 72.1 % (36.0-66.0); PLATELET COUNT, AUTOMATED 455 10^3/uL (150-450); RED BLOOD COUNT 4.13 10^6/uL (4.00-5.40); WHITE BLOOD COUNT 4.9 10^3/uL (4.0-10.0)
[2023-02-08 07:22] LABS: BLOOD UREA NITROGEN 28 MG/DL (9-23); CALCIUM LEVEL 8.6 MG/DL (8.5-10.1); CARBON DIOXIDE LEVEL 24 MMOL/L (20-31); CHLORIDE LEVEL 105 MMOL/L (98-107); CREATININE FOR GFR 0.59 MG/DL (0.55-1.30); GLOMERULAR FILTRATION RATE > 60.0 (>51); GLUCOSE, FASTING 88 MG/DL (60-100); MAGNESIUM LEVEL 1.8 MG/DL (1.8-2.4); POTASSIUM SERUM 4.1 MMOL/L (3.5-5.1); SODIUM LEVEL 138 MMOL/L (136-145)
[2023-02-08] MEDS: CEFDINIR 300 MG CAP (OMNICEF) PO SCH (08:43)
[2023-02-08] MEDS: VITAMIN D 1,000 INTERNATIONAL UNITS TABLET PO SCH (08:43)
[2023-02-08] MEDS: LACTOBACILLUS ACIDOPHILUS CAP (BACID) PO SCH (08:43)
[2023-02-08] MEDS: NYSTATIN 500,000U/5ML SUSP UDC PO SCH ×2 (08:43→12:16)
[2023-02-08] MEDS: predniSONE 20 MG TAB PO SCH (08:44)
[2023-02-08] MEDS: MIDODRINE 5 MG TAB PO SCH ×2 (08:44→12:16)
[2023-02-08] MEDS: APIXABAN 5 MG TAB (ELIQUIS) PO SCH (08:44)
[2023-02-08] MEDS: FLUCONAZOLE 100 MG TAB PO SCH (08:44)
[2023-02-08] MEDS: FAMOTIDINE 20 MG TAB PO SCH (08:44)
[2023-02-08] MEDS: FLUTICASONE PROP 0.05% NASAL SPRAY 16 GM (FLONASE) NARES SCH (08:45)
[2023-02-08] MEDS: guaiFENesin ER 600 MG TAB PO SCH (08:45)
[2023-02-08] MEDS: LORATADINE 10 MG TAB PO SCH (08:46)
[2023-02-08] MEDS ORDERED: PRED20TA PO ×2 (11:44→12:53)
[2023-02-08] MEDS ORDERED: ELIQ5TAB PO ×2 (11:44→12:53)
[2023-02-08] MEDS ORDERED: NYST-38 PO ×2 (11:44→12:53)
[2023-02-08] MEDS ORDERED: FLUC100T3 PO ×3 (11:44→12:53)
[2023-02-08] MEDS ORDERED: METR-265 PO ×2 (11:44→12:53)
[2023-02-08] MEDS ORDERED: MIDO5TA PO ×3 (11:44→12:53)
[2023-02-08] MEDS ORDERED: CEFD300CAP PO ×2 (11:44→12:53)
[2023-02-08] MEDS ORDERED: FAMO20TA PO ×2 (11:44→12:53)
[2023-02-08] MEDS ORDERED: HYDR-4514 PO ×2 (12:08→12:53)
[2023-02-08] MEDS: ANEXSIA, NORCO 7.5MG/325MG TABLET(HYDROCODONE/APAP) PO PRN (12:16)
== END 2023-02-08 14:45 | disposition home health service (06) | DRG 516 ==
LOC: M ED 09:11 → EDBD 09:11 → M ED INP 12:11 → ENRESERV 12:57 → M MSPAV 14:04
PROVIDERS: ADMIT Internal Medicine Nephrology; ATTEND Family Medicine
PROC: 07B53ZX Excision of Right Axillary Lymphatic, Percutaneous Approach, Diagnostic (ICD-10-PCS; principal; 2023-01-28 11:00)
DX: M32.19 Other organ or system involvement in systemic lupus erythematosus (principal); B37.0 Candidal stomatitis; B37.81 Candidal esophagitis; R50.9 Fever, unspecified; M79.7 Fibromyalgia; F41.9 Anxiety disorder, unspecified; F32.A Depression, unspecified; G43.909 Migraine, unspecified, not intractable, without status migrainosus; K21.9 Gastro-esophageal reflux disease without esophagitis; D72.810 Lymphocytopenia; E87.6 Hypokalemia; K52.89 Other specified noninfective gastroenteritis and colitis; R21 Rash and other nonspecific skin eruption; M25.551 Pain in right hip; Z79.01 Long term (current) use of anticoagulants; Z86.718 Personal history of other venous thrombosis and embolism; Z79.899 Other long term (current) drug therapy

== ENCOUNTER 2023-02-17 07:26 | Emergency (ER) | payer OTHER ==
[~2023-02-17] VITALS: Ht 162.6 cm; Wt 56.8 kg
[~2023-02-17 07:26] MED LIST changes: +ACET32TAB PO; +CEFD300CAP PO; +FAMO20TA PO; +FLUC100T3 PO; +HYDR-4514 PO; +LEVO1TAB38 PO; +METR-265 PO; +MIDO5TA PO; +NYST-38 PO; +PRED20TA PO
[2023-02-17] MEDS ORDERED: PRED10TA2 (07:57)
[2023-02-17 11:19] VITALS: BP 123/60
== END 2023-02-17 11:30 | disposition home or self-care (01) ==
LOC: EDSEX 07:26 → M ED 07:26 → EDBD 07:26 → M ED 11:30
DX: R07.89 Other chest pain (principal); M32.9 Systemic lupus erythematosus, unspecified; Z88.1 Allergy status to other antibiotic agents; Z79.899 Other long term (current) drug therapy

== ENCOUNTER → 2023-02-20 | Outpatient (REF) | payer OTHER ==
[~2023-02-20] MED LIST changes: +PRED10TA2
== END ==
LOC: M LAB REF 16:54
PROVIDERS: ATTEND Otolaryngology
DX: B37.9 Candidiasis, unspecified (principal)

== ENCOUNTER 2023-02-21 10:29 | Emergency (ER) | payer OTHER ==
[~2023-02-21] VITALS: Ht 162.6 cm; Wt 56.8 kg
[2023-02-21 11:02] LABS: BASO % 0.2 % (0.0-1.0); EOS % 0.6 % (0.0-3.0); HEMOGLOBIN 10.1 g/dl (12.0-15.5); LYMPH # 0.4 10^3/uL (1.5-5.0); LYMPH % 8.8 % (24.0-44.0); MEAN CORPUSCULAR HEMOGLOBIN 26.9 pg (27.0-33.0); MEAN CORPUSCULAR HGB CONC 31.6 g/dl (32.0-36.5); MEAN CORPUSCULAR VOLUME 85.1 fl (80.0-96.0); MONO # 0.2 10^3/uL (0.0-0.8); MONO % 3.4 % (2.0-8.0); NEUTROPHILS # 4.1 10^3/uL (1.5-8.5); NEUTROPHILS % 86.4 % (36.0-66.0); PLATELET COUNT, AUTOMATED 285 10^3/uL (150-450); RED BLOOD COUNT 3.76 10^6/uL (4.00-5.40); WHITE BLOOD COUNT 4.8 10^3/uL (4.0-10.0)
[2023-02-21 11:09] LABS: INR 1.29; PROTHROMBIN TIME 16.3 SECONDS (12.5-14.5)
[2023-02-21] MEDS ORDERED: NITROGLYCERIN 0.4MG SUBL TABLET SL PRN (11:10)
[2023-02-21 11:28] LABS: CK-MB VALUE MASS < 1.0 NG/ML (<3.6)
[2023-02-21 11:29] LABS: LIPASE 33 U/L (12-53)
[2023-02-21 11:30] LABS: CPK CREATINE PHOSPHOKINASE < 15 U/L (34-145)
[2023-02-21 11:31] LABS: ALBUMIN 2.6 G/DL (3.2-5.2); ALKALINE PHOSPHATASE 56 U/L (46-116); ALT/SGPT 42 U/L (7.0-40); AST/SGOT 32 U/L (<34); BILIRUBIN,DIRECT < 0.1 MG/DL (<0.4); BILIRUBIN,TOTAL 0.3 MG/DL (0.3-1.2); BLOOD UREA NITROGEN 16 MG/DL (9-23); CALCIUM LEVEL 8.3 MG/DL (8.5-10.1); CARBON DIOXIDE LEVEL 26 MMOL/L (20-31); CHLORIDE LEVEL 109 MMOL/L (98-107); GLOMERULAR FILTRATION RATE > 60.0 (>51); GLUCOSE, FASTING 98 MG/DL (60-100); POTASSIUM SERUM 3.2 MMOL/L (3.5-5.1); SODIUM LEVEL 141 MMOL/L (136-145); TOTAL PROTEIN 5.9 G/DL (5.7-8.2)
[2023-02-21 11:54] VITALS: BP 112/59
[2023-02-21 12:32] LABS: CK-MB VALUE MASS < 1.0 NG/ML (<3.6)
[2023-02-21 12:33] LABS: CPK CREATINE PHOSPHOKINASE < 15 U/L (34-145)
[2023-02-21] MEDS ORDERED: ISOVUE-370 76% 100ML VIAL As Ordered ONE (12:49)
[2023-02-21] MEDS ORDERED: POTASSIUM CHLORIDE 10MEQ SR TABLET PO ONE (13:00)
[2023-02-21 14:30] VITALS: BP 114/59
== END 2023-02-21 14:33 | disposition home or self-care (01) ==
LOC: EDBD 10:29 → M ED 10:29
DX: R07.9 Chest pain, unspecified (principal); M25.511 Pain in right shoulder; K21.9 Gastro-esophageal reflux disease without esophagitis; M32.9 Systemic lupus erythematosus, unspecified; M79.7 Fibromyalgia; F41.9 Anxiety disorder, unspecified; F32.A Depression, unspecified; G43.909 Migraine, unspecified, not intractable, without status migrainosus; Z86.718 Personal history of other venous thrombosis and embolism; Z88.1 Allergy status to other antibiotic agents; Z79.52 Long term (current) use of systemic steroids; Z79.899 Other long term (current) drug therapy; Z79.51 Long term (current) use of inhaled steroids
CPT/HCPCS: 71045; 71275; 73030; 80048; 80076; 82550; 82553; 83690; 84484; 85025; 85610; 86850; 86900; 86901; 86920; 93005; 93041; 94760; 99285; Q9967

== ENCOUNTER → 2023-02-26 | Outpatient (CLI) | payer OTHER ==
[~2023-02-26] MED LIST changes: +LIDOCAINE 1% MDV 20ML VIAL As Ordered ONE
[2023-02-26 12:32] LABS: BASO % 0.2 % (0.0-1.0); EOS % 0.4 % (0.0-3.0); HEMATOCRIT 33.3 % (36.0-47.0); HEMOGLOBIN 10.5 g/dl (12.0-15.5); LYMPH # 0.3 10^3/uL (1.5-5.0); LYMPH % 6.6 % (24.0-44.0); MEAN CORPUSCULAR HEMOGLOBIN 26.9 pg (27.0-33.0); MEAN CORPUSCULAR HGB CONC 31.5 g/dl (32.0-36.5); MEAN CORPUSCULAR VOLUME 85.2 fl (80.0-96.0); MONO # 0.2 10^3/uL (0.0-0.8); MONO % 3.3 % (2.0-8.0); NEUTROPHILS % 88.4 % (36.0-66.0); PLATELET COUNT, AUTOMATED 387 10^3/uL (150-450); RED BLOOD COUNT 3.91 10^6/uL (4.00-5.40); WHITE BLOOD COUNT 4.5 10^3/uL (4.0-10.0)
[2023-02-26 13:18] VITALS: BP 104/58
== END ==
LOC: M IRPRO 11:12
PROVIDERS: ATTEND Internal Medicine Hematology & Oncology
DX: D70.9 Neutropenia, unspecified (principal)

== ENCOUNTER 2023-03-22 06:56 | Inpatient (IN) | payer OTHER ==
[~2023-03-22] VITALS: Ht 162.6 cm; Wt 65.8 kg
[~2023-03-22 06:56] MED LIST changes: +FLUT50SP17 NARES; -FLUTISP NARES; -LIDOCAINE 1% MDV 20ML VIAL As Ordered ONE
[2023-03-22] MEDS ORDERED: NS 1,000 ML IV ONE (07:50)
[2023-03-22] MEDS ORDERED: ONDANSETRON 4MG 2ML VIAL IV ONE (07:50)
[2023-03-22] MEDS ORDERED: fentaNYL 100 MCG/2 ML INJECTION IV ONE (07:50)
[2023-03-22] MEDS ORDERED: ISOVUE-370 76% 100ML VIAL As Ordered ONE (08:23)
[2023-03-22 08:34] LABS: BASO % 0.7 % (0.0-1.0); EOS % 1.4 % (0.0-3.0); HEMATOCRIT 35.1 % (36.0-47.0); HEMOGLOBIN 11.2 g/dl (12.0-15.5); LYMPH # 0.8 10^3/uL (1.5-5.0); LYMPH % 28.7 % (24.0-44.0); MEAN CORPUSCULAR HEMOGLOBIN 27.7 pg (27.0-33.0); MEAN CORPUSCULAR HGB CONC 31.9 g/dl (32.0-36.5); MEAN CORPUSCULAR VOLUME 86.7 fl (80.0-96.0); MONO # 0.1 10^3/uL (0.0-0.8); NEUTROPHILS # 1.8 10^3/uL (1.5-8.5); NEUTROPHILS % 63.1 % (36.0-66.0); PLATELET COUNT, AUTOMATED 303 10^3/uL (150-450); RED BLOOD COUNT 4.05 10^6/uL (4.00-5.40); WHITE BLOOD COUNT 2.8 10^3/uL (4.0-10.0)
[2023-03-22 08:57] LABS: LIPASE 29 U/L (12-53)
[2023-03-22 08:59] LABS: ALBUMIN 3.2 G/DL (3.2-5.2); ALKALINE PHOSPHATASE 59 U/L (46-116); ALT/SGPT 16 U/L (7.0-40); AST/SGOT 16 U/L (<34); BILIRUBIN,DIRECT < 0.1 MG/DL (<0.4); BILIRUBIN,TOTAL 0.4 MG/DL (0.3-1.2); TOTAL PROTEIN 6.7 G/DL (5.7-8.2)
[2023-03-22] MEDS ORDERED: HALOPERIDOL 5MG/ML 1ML VIAL IV ONE (11:45)
[2023-03-22] MEDS ORDERED: LACT20EL PO (12:28)
[2023-03-22] MEDS ORDERED: NS 500 ML IV ONE (13:00)
[2023-03-22] MEDS ORDERED: MIDODRINE 5 MG TAB PO STA (13:37)
[2023-03-22] MEDS ORDERED: MIDO10TA PO (13:42)
[2023-03-22 15:50] LABS: RSV AMPLIFICATION NEGATIVE (NEGATIVE)
[2023-03-22] MEDS: LR 1,000 ML IV SCH (15:50)
[2023-03-22 16:00] VITALS: BP_SYST 109; BP_SYST 113; BP_DIAS 52; BP_DIAS 53
[2023-03-22] MEDS ORDERED: RIZA10TA58 PO (16:03)
[2023-03-22] MEDS ORDERED: PRED10TA2 PO (16:03)
[2023-03-22] MEDS ORDERED: MIDO5TA PO (16:03)
[2023-03-22] MEDS ORDERED: LIDO1PAD TOP (16:03)
[2023-03-22] MEDS ORDERED: ELIQ5TAB PO (16:03)
[2023-03-22] MEDS ORDERED: FAMO1TAB11 PO (16:03)
[2023-03-22] MEDS ORDERED: HOME MED LIST COMPLETE! XX SCH (16:05)
[2023-03-22 18:00] VITALS: BP 115/57
[2023-03-22] MEDS: MIDODRINE 5 MG TAB PO SCH (18:26)
[2023-03-22 20:00] VITALS: BP 116/58
[2023-03-22] MEDS: SENOKOT S TAB PO SCH (20:19)
[2023-03-22] MEDS: MIRALAX *UNIT DOSE* 17GM PACKET PO PRN (20:19)
[2023-03-22] MEDS: APIXABAN 5 MG TAB (ELIQUIS) PO SCH (20:19)
[2023-03-23] VITALS: BP_SYST 126; BP_SYST 135; BP_SYST 136; BP_DIAS 72; BP_DIAS 83; BP_DIAS 87
[2023-03-23] MEDS: LR 1,000 ML IV SCH ×2 (02:31→08:23)
[2023-03-23 03:40] VITALS: BP 121/69
[2023-03-23 05:47] LABS: HEMATOCRIT 32.6 % (36.0-47.0); HEMOGLOBIN 10.3 g/dl (12.0-15.5); MEAN CORPUSCULAR HEMOGLOBIN 27.4 pg (27.0-33.0); MEAN CORPUSCULAR HGB CONC 31.6 g/dl (32.0-36.5); MEAN CORPUSCULAR VOLUME 86.7 fl (80.0-96.0); PLATELET COUNT, AUTOMATED 284 10^3/uL (150-450); RED BLOOD COUNT 3.76 10^6/uL (4.00-5.40)
[2023-03-23 06:11] LABS: BLOOD UREA NITROGEN 9 MG/DL (9-23); CALCIUM LEVEL 8.1 MG/DL (8.5-10.1); CARBON DIOXIDE LEVEL 26 MMOL/L (20-31); CHLORIDE LEVEL 110 MMOL/L (98-107); GLOMERULAR FILTRATION RATE > 60.0 (>51); GLUCOSE, FASTING 99 MG/DL (60-100); POTASSIUM SERUM 3.7 MMOL/L (3.5-5.1); SODIUM LEVEL 141 MMOL/L (136-145)
[2023-03-23 08:01] VITALS: BP 138/67
[2023-03-23] MEDS: MIDODRINE 5 MG TAB PO SCH ×2 (08:22→11:51)
[2023-03-23] MEDS: APIXABAN 5 MG TAB (ELIQUIS) PO SCH (08:22)
[2023-03-23] MEDS: SENOKOT S TAB PO SCH (08:22)
[2023-03-23] MEDS ORDERED: LIDOCAINE 5% (LIDODERM) PATCH TD SCH (09:00)
[2023-03-23] MEDS ORDERED: predniSONE 10MG TAB PO SCH (09:00)
[2023-03-23] MEDS ORDERED: FAMOTIDINE 20 MG TAB PO SCH (09:00)
[2023-03-23] MEDS ORDERED: VITAMIN D 1,000 INTERNATIONAL UNITS TABLET PO SCH (09:00)
[2023-03-23] MEDS ORDERED: FLUTICASONE PROP 0.05% NASAL SPRAY 16 GM (FLONASE) NARES SCH (09:00)
[2023-03-23] MEDS ORDERED: LORATADINE 10 MG TAB PO SCH (09:00)
[2023-03-23 11:10] VITALS: BP 109/52
[2023-03-23] MEDS ORDERED: RIZATRIPTAN MLT 10 MG TAB PO PRN (11:35)
[2023-03-23] MEDS: MIRALAX *UNIT DOSE* 17GM PACKET PO PRN (11:50)
[2023-03-23] MEDS ORDERED: LACTOBACILLUS ACIDOPHILUS CAP (BACID) PO SCH (18:00)
[2023-03-23] MEDS ORDERED: ZONISAMIDE 50 MG CAP (ZONEGRAN) PO SCH (21:00)
[2023-03-23] MEDS ORDERED: HYDROXYCHLOROQUINE 200 MG TAB PO SCH (21:00)
[2023-03-24] MEDS ORDERED: MULTIVITAMINS/MINERALS THERAP 1 TAB PO SCH (09:00)
== END 2023-03-23 15:07 | disposition home or self-care (01) | DRG 312 ==
LOC: M ED 06:56 → M PCU 15:47 → M ED INP 15:47 → M PCU 17:45
PROVIDERS: ADMIT Family Medicine; ATTEND Family Medicine
DX: I95.1 Orthostatic hypotension (principal); M32.9 Systemic lupus erythematosus, unspecified; D70.9 Neutropenia, unspecified; Z88.1 Allergy status to other antibiotic agents; Z91.018 Allergy to other foods; M79.7 Fibromyalgia; F41.9 Anxiety disorder, unspecified; F32.A Depression, unspecified; G43.909 Migraine, unspecified, not intractable, without status migrainosus; K21.9 Gastro-esophageal reflux disease without esophagitis; Z86.718 Personal history of other venous thrombosis and embolism; K59.00 Constipation, unspecified; Z79.01 Long term (current) use of anticoagulants; Z79.899 Other long term (current) drug therapy; Z79.52 Long term (current) use of systemic steroids

== ENCOUNTER → 2023-04-10 | Outpatient (CLI) | payer OTHER ==
[~2023-04-10] MED LIST changes: +FAMO1TAB11 PO; +LACT20EL PO; +LIDO1PAD TOP; +MIDO10TA PO; +MIRA3350 PO; +PRED10TA2 PO; +RIZA10TA58 PO; +XIID5DRO OP
== END ==
LOC: M RAD 07:24
PROVIDERS: ATTEND Internal Medicine Medical Oncology
DX: R10.9 Unspecified abdominal pain (principal); R22.1 Localized swelling, mass and lump, neck

== ENCOUNTER → 2023-04-27 | Outpatient (REF) | payer OTHER | LOC: M LAB REF 17:14 | PROVIDERS: ATTEND Physician Assistant | DX: J02.9 Acute pharyngitis, unspecified (principal) ==

== ENCOUNTER 2023-04-29 05:13 | Emergency (ER) | payer OTHER ==
[~2023-04-29] VITALS: Ht 162.6 cm; Wt 61.4 kg
[2023-04-29 05:47] LABS: BASO % 0.3 % (0.0-1.0); EOS # 0.1 10^3/uL (0.0-0.5); EOS % 2.1 % (0.0-3.0); HEMOGLOBIN 11.7 g/dl (12.0-15.5); LYMPH # 0.7 10^3/uL (1.5-5.0); LYMPH % 21.5 % (24.0-44.0); MEAN CORPUSCULAR HEMOGLOBIN 26.7 pg (27.0-33.0); MEAN CORPUSCULAR HGB CONC 31.6 g/dl (32.0-36.5); MEAN CORPUSCULAR VOLUME 84.5 fl (80.0-96.0); MONO # 0.2 10^3/uL (0.0-0.8); NEUTROPHILS # 2.4 10^3/uL (1.5-8.5); NEUTROPHILS % 70.2 % (36.0-66.0); PLATELET COUNT, AUTOMATED 351 10^3/uL (150-450); RED BLOOD COUNT 4.38 10^6/uL (4.00-5.40); WHITE BLOOD COUNT 3.4 10^3/uL (4.0-10.0)
[2023-04-29 05:56] LABS: INR 1.13; PROTHROMBIN TIME 14.7 SECONDS (12.5-14.5)
[2023-04-29 06:08] LABS: ALBUMIN 3.1 G/DL (3.2-5.2); ALKALINE PHOSPHATASE 70 U/L (46-116); ALT/SGPT 19 U/L (7.0-40); AST/SGOT 27 U/L (<34); BILIRUBIN,DIRECT 0.1 MG/DL (<0.4); BILIRUBIN,TOTAL 0.4 MG/DL (0.3-1.2); BLOOD UREA NITROGEN 17 MG/DL (9-23); CALCIUM LEVEL 8.6 MG/DL (8.5-10.1); CARBON DIOXIDE LEVEL 20 MMOL/L (20-31); CHLORIDE LEVEL 105 MMOL/L (98-107); CK-MB VALUE MASS < 1.0 NG/ML (<3.6); CREATININE FOR GFR 0.82 MG/DL (0.55-1.30); GLOMERULAR FILTRATION RATE > 60.0 (>51); GLUCOSE, FASTING 110 MG/DL (60-100); POTASSIUM SERUM 3.5 MMOL/L (3.5-5.1); SODIUM LEVEL 138 MMOL/L (136-145)
[2023-04-29 06:11] LABS: CPK CREATINE PHOSPHOKINASE 21 U/L (34-145); MB/CK RELATIVE INDEX 4.76 (< OR =4)
[2023-04-29 07:16] LABS: CK-MB VALUE MASS < 1.0 NG/ML (<3.6); CPK CREATINE PHOSPHOKINASE 40 U/L (34-145)
[2023-04-29] MEDS ORDERED: ISOVUE-370 76% 100ML VIAL As Ordered ONE (07:40)
[2023-04-29] MEDS ORDERED: MIDODRINE 5 MG TAB PO STA (09:07)
[2023-04-29 10:00] VITALS: BP 123/66
== END 2023-04-29 10:12 | disposition home or self-care (01) ==
LOC: M ED 05:13 → EDBD 05:13 → M ED 10:12
DX: R07.89 Other chest pain (principal); G43.909 Migraine, unspecified, not intractable, without status migrainosus; M32.9 Systemic lupus erythematosus, unspecified; Z86.711 Personal history of pulmonary embolism; Z88.1 Allergy status to other antibiotic agents; Z91.018 Allergy to other foods; Z79.899 Other long term (current) drug therapy; Z79.01 Long term (current) use of anticoagulants; Z79.52 Long term (current) use of systemic steroids
CPT/HCPCS: 36415; 71045; 71275; 80048; 80076; 82550; 82553; 83880; 84484; 85025; 85610; 85652; 87486; 87581; 87633; 87798; 93005; 93041; 94760; 99285; Q9967

== ENCOUNTER 2023-08-12 17:02 | Emergency (ER) | payer OTHER ==
[~2023-08-12] VITALS: Ht 162.6 cm; Wt 55.5 kg
[~2023-08-12 17:02] MED LIST changes: +CELE0.09 PO; -CELE1CAP9 PO; -HYDR200T3 PO; +HYDR200T46 PO; +LORA-1041 PO; -LORA-674 PO
[2023-08-12 17:11] VITALS: BP 165/74; TEMP 98.2
[2023-08-12 17:56] LABS: BASO % 0.5 % (0.0-1.0); EOS % 1.1 % (0.0-3.0); HEMATOCRIT 38.8 % (36.0-47.0); HEMOGLOBIN 12.4 g/dl (12.0-15.5); LYMPH # 0.5 10^3/uL (1.5-5.0); LYMPH % 13.2 % (24.0-44.0); MEAN CORPUSCULAR HEMOGLOBIN 27.3 pg (27.0-33.0); MEAN CORPUSCULAR VOLUME 85.5 fl (80.0-96.0); MONO # 0.2 10^3/uL (0.0-0.8); MONO % 5.2 % (2.0-8.0); NEUTROPHILS # 2.9 10^3/uL (1.5-8.5); NEUTROPHILS % 79.2 % (36.0-66.0); PLATELET COUNT, AUTOMATED 331 10^3/uL (150-450); RED BLOOD COUNT 4.54 10^6/uL (4.00-5.40); WHITE BLOOD COUNT 3.7 10^3/uL (4.0-10.0)
[2023-08-12] MEDS ORDERED: ISOVUE-370 76% 100ML VIAL As Ordered ONE (18:09)
[2023-08-12 18:13] LABS: INR 1.05; PROTHROMBIN TIME 13.4 SECONDS (12.5-14.5)
[2023-08-12 18:14] LABS: PARTIAL THROMBOPLASTIN TIME 32.7 SECONDS (24.8-34.2)
[2023-08-12] MEDS ORDERED: PERCOCET 5MG/325MG TAB PO ONE (20:20)
[2023-08-12 20:31] VITALS: O2SAT 99
[2023-10-11] MEDS ORDERED: OMEP-173 (11:35)
[2023-10-11] MEDS ORDERED: PLAQ200T4 (11:37)
== END 2023-08-12 20:53 | disposition home or self-care (01) ==
LOC: EDBD 17:02 → M ED 17:02
DX: S90.31XA Contusion of right foot, initial encounter (principal); S30.0XXA Contusion of lower back and pelvis, initial encounter; V29.99XA Rider (driver) (passenger) of other motorcycle injured in unspecified traffic accident, initial encounter; M54.50 Low back pain, unspecified; F41.9 Anxiety disorder, unspecified; F32.A Depression, unspecified; G43.909 Migraine, unspecified, not intractable, without status migrainosus; K21.9 Gastro-esophageal reflux disease without esophagitis; Z86.711 Personal history of pulmonary embolism; Z88.1 Allergy status to other antibiotic agents; Z88.8 Allergy status to other drugs, medicaments and biological substances; Z91.018 Allergy to other foods; Z79.01 Long term (current) use of anticoagulants; Z79.810 Long term (current) use of selective estrogen receptor modulators (SERMs); Z79.899 Other long term (current) drug therapy
CPT/HCPCS: 36415; 70450; 71260; 72125; 73502; 73552; 73610; 73630; 74177; 80047; 85025; 85610; 85730; 86850; 86900; 86901; 93041; 94760; 99285; Q9967

== ENCOUNTER → 2023-09-04 | Outpatient (REF) | payer OTHER ==
[2023-09-04 16:29] LABS: APPEARANCE, URINE HAZY (CLEAR); BACTERIA, URINE AUTO NEGATIVE (NEGATIVE); BILIRUBIN, URINE AUTO NEGATIVE (NEGATIVE); BLOOD, URINE BLOOD 2+ (NEGATIVE); COLOR, URINE YELLOW (YELLOW); GLUCOSE, URINE (UA) AUTO NEGATIVE (NEGATIVE); KETONE, URINE AUTO NEGATIVE (NEGATIVE); LEUKOCYTE ESTERASE, URINE AUTO NEGATIVE (NEGATIVE); MUCUS, URINE SMALL (NEGATIVE); NITRITE, URINE AUTO NEGATIVE (NEGATIVE); PROTEIN, URINE AUTO NEGATIVE (NEGATIVE); RBC, URINE AUTO 28 /HPF (0-3); SPECIFIC GRAVITY URINE AUTO 1.023 (1.002-1.035); SQUAMOUS EPITHELIAL CELL UR AU 1 /HPF (0-6); UROBILINOGEN, URINE AUTO 0.2 mg/dL (0.0-2.0); WBC, URINE AUTO 2 /HPF (0-3)
== END ==
LOC: M LAB REF 15:56
PROVIDERS: ATTEND Physician Assistant
DX: N39.0 Urinary tract infection, site not specified (principal)

== ENCOUNTER → 2023-09-04 | Outpatient (CLI) | payer OTHER | LOC: M WHC 14:33 | DX: Z79.52 Long term (current) use of systemic steroids (principal) ==

== ENCOUNTER 2023-09-10 10:34 | Emergency (ER) | payer OTHER ==
[~2023-09-10] VITALS: Ht 162.6 cm; Wt 55.2 kg
[2023-09-10 10:34] VITALS: BP 149/70; TEMP 99.2; O2SAT 98
== END 2023-09-10 13:36 | disposition home or self-care (01) ==
LOC: M ED 10:34
DX: I82.721 Chronic embolism and thrombosis of deep veins of right upper extremity (principal); Z88.1 Allergy status to other antibiotic agents; Z91.018 Allergy to other foods; G43.909 Migraine, unspecified, not intractable, without status migrainosus; K21.9 Gastro-esophageal reflux disease without esophagitis; M79.7 Fibromyalgia; M32.9 Systemic lupus erythematosus, unspecified; Z79.899 Other long term (current) drug therapy; Z79.01 Long term (current) use of anticoagulants; Z79.52 Long term (current) use of systemic steroids

== ENCOUNTER 2023-10-21 09:44 | Outpatient (RCR) | payer OTHER ==
[~2023-10-21 09:44] MED LIST changes: +OMEP-173; +PLAQ200T4
== END 2023-10-31 ==
LOC: M ST 09:44
PROVIDERS: ATTEND Nurse Practitioner Primary Care
DX: R13.10 Dysphagia, unspecified (principal)

== ENCOUNTER 2023-11-27 10:19 | Outpatient (RCR) | payer OTHER ==
[~2023-11-27 10:19] MED LIST changes: -FLUT50SP17 NARES; +FLUTISP NARES
== END 2023-12-01 ==
LOC: M ST 10:19
PROVIDERS: ATTEND Nurse Practitioner Primary Care
DX: R13.10 Dysphagia, unspecified (principal)

== ENCOUNTER → 2023-12-27 | Outpatient (CLI) | payer OTHER | LOC: M PLAIMG 13:54 | PROVIDERS: ATTEND Internal Medicine Pulmonary Disease | DX: R91.8 Other nonspecific abnormal finding of lung field (principal) ==

== ENCOUNTER 2024-01-15 11:45 | Outpatient (RCR) | payer OTHER | END 2024-01-30 | LOC: M ST 11:45 | PROVIDERS: ATTEND Family Medicine | DX: R13.10 Dysphagia, unspecified (principal) ==

== ENCOUNTER → 2024-01-15 | Outpatient (CLI) | payer OTHER ==
[2024-01-15 16:10] LABS: BASO % 0.4 % (0.0-1.0); EOS # 0.1 10^3/uL (0.0-0.5); HEMATOCRIT 35.2 % (36.0-47.0); HEMOGLOBIN 11.7 g/dl (12.0-15.5); LYMPH # 0.6 10^3/uL (1.5-5.0); LYMPH % 23.6 % (24.0-44.0); MEAN CORPUSCULAR HEMOGLOBIN 28.1 pg (27.0-33.0); MEAN CORPUSCULAR HGB CONC 33.2 g/dl (32.0-36.5); MEAN CORPUSCULAR VOLUME 84.6 fl (80.0-96.0); MONO # 0.1 10^3/uL (0.0-0.8); MONO % 4.8 % (2.0-8.0); NEUTROPHILS # 1.8 10^3/uL (1.5-8.5); NEUTROPHILS % 67.8 % (36.0-66.0); PLATELET COUNT, AUTOMATED 318 10^3/uL (150-450); RED BLOOD COUNT 4.16 10^6/uL (4.00-5.40); WHITE BLOOD COUNT 2.7 10^3/uL (4.0-10.0)
[2024-01-15 16:34] LABS: C REACTIVE PROTEIN QUANTITATIV 1.7 MG/DL (<1.0)
== END ==
LOC: M LAB 14:49
PROVIDERS: ATTEND Ophthalmology
DX: D86.9 Sarcoidosis, unspecified (principal)

== ENCOUNTER 2024-02-13 13:52 | Outpatient (RCR) | payer OTHER | END 2024-03-01 | LOC: M ST 13:52 | PROVIDERS: ATTEND Family Medicine | DX: R13.10 Dysphagia, unspecified (principal) ==

== ENCOUNTER → 2024-04-01 | Outpatient (CLI) | payer OTHER | LOC: M RAD 13:35 | PROVIDERS: ATTEND Internal Medicine Pulmonary Disease | DX: R91.8 Other nonspecific abnormal finding of lung field (principal) ==

== ENCOUNTER 2024-05-13 07:21 | Day surgery (SDC) | payer OTHER ==
[~2024-05-13] VITALS: Ht 162.6 cm; Wt 57.2 kg
[~2024-05-13 07:21] MED LIST changes: +ALBU8.5H; +ANIF300V IV; +FLUT12HF2
[2024-05-13 08:00] LABS: HEMOGLOBIN 11.7 g/dl (12.0-15.5)
[2024-05-13] MEDS ORDERED: MIDAZOLAM INJ 2MG/2ML VIAL As Ordered ONE (08:15)
[2024-05-13] MEDS ORDERED: LIDOCAINE 2% 100MG/5ML SDV (FOR ANES.) As Ordered ONE (08:16)
[2024-05-13] MEDS ORDERED: fentaNYL 100 MCG/2 ML INJECTION As Ordered ONE (08:18)
[2024-05-13] MEDS ORDERED: LR 1,000 ML IV SCH (08:20)
[2024-05-13] MEDS ORDERED: SILVER NITRATE APPLICATOR (1 = QTY 10) As Ordered ONE (08:36)
[2024-05-13] MEDS ORDERED: LIDOCAINE 1% SDV 30ML VIAL As Ordered ONE (08:36)
[2024-05-13] MEDS ORDERED: ONDANSETRON 4MG 2ML VIAL As Ordered ONE (08:53)
[2024-05-13] MEDS ORDERED: KETOROLAC 60MG 2ML VIAL As Ordered ONE (08:53)
[2024-05-13] MEDS ORDERED: propofoL 200 MG/20 ML VIAL As Ordered ONE (08:53)
[2024-05-13] MEDS ORDERED: ONDANSETRON 4MG 2ML VIAL IV PRN (09:45)
[2024-05-13] MEDS ORDERED: fentaNYL 100 MCG/2 ML INJECTION IV PRN (09:45)
[2024-05-13] MEDS ORDERED: oxyCODONE 5MG TAB PO PRN ×2 (09:45→11:35)
[2024-05-13 12:36] VITALS: BP 106/53; TEMP 98; O2SAT 97
== END 2024-05-13 12:36 | disposition home or self-care (01) ==
LOC: M SDC 07:21
PROVIDERS: ATTEND Obstetrics & Gynecology
DX: N84.0 Polyp of corpus uteri (principal); R93.89 Abnormal findings on diagnostic imaging of other specified body structures; D86.9 Sarcoidosis, unspecified; N88.2 Stricture and stenosis of cervix uteri; Z88.1 Allergy status to other antibiotic agents; Z91.018 Allergy to other foods; Z79.899 Other long term (current) drug therapy
CPT/HCPCS: 36415; 58558; 85014; 85018; 88305; J1100; J1885; J2250; J2405; J3010

== ENCOUNTER → 2024-07-02 | Outpatient (CLI) | payer OTHER ==
[2024-07-02 13:01] LABS: THYROID STIMULATING HORMONE 1.301 uIU/ML (0.55-4.78)
[2024-07-02 13:04] LABS: FREE T4 1.13 NG/DL (0.89-1.76)
== END ==
LOC: M LAB 11:28
PROVIDERS: ATTEND Internal Medicine Cardiovascular Disease
DX: R00.0 Tachycardia, unspecified (principal); R07.9 Chest pain, unspecified; Z13.29 Encounter for screening for other suspected endocrine disorder

== ENCOUNTER 2024-07-03 19:59 | Emergency (ER) | payer OTHER ==
[~2024-07-03] VITALS: Ht 162.6 cm; Wt 55.9 kg
[2024-07-03 20:00] VITALS: BP 137/64; TEMP 99.4; O2SAT 99
== END 2024-07-04 03:08 | disposition left against medical advice (07) ==
LOC: M ED 19:59
DX: Z53.21 Procedure and treatment not carried out due to patient leaving prior to being seen by health care provider (principal)

== ENCOUNTER → 2024-10-23 | Outpatient (CLI) | payer OTHER ==
[~2024-10-23] MED LIST changes: -MIDO10TA PO; +MIDO10TA3 PO; +PRED5TA; +TACR0.1O
== END ==
LOC: M WHC 13:11
PROVIDERS: ATTEND Family Medicine
DX: Z12.39 Encounter for other screening for malignant neoplasm of breast (principal); Z13.820 Encounter for screening for osteoporosis

== ENCOUNTER → 2024-10-24 | Outpatient (CLI) | payer OTHER | LOC: M RAD 13:58 | PROVIDERS: ATTEND Internal Medicine Pulmonary Disease | DX: M32.9 Systemic lupus erythematosus, unspecified (principal) ==

== ENCOUNTER 2024-11-17 16:06 | Emergency (ER) | payer OTHER ==
[~2024-11-17] VITALS: Ht 162.6 cm; Wt 57.3 kg
[~2024-11-17 16:06] MED LIST changes: -ALBU8.5H; +ALBU8.5H INH; -PRED5TA; +PRED5TA PO
[2024-11-18] MEDS: ACETAMINOPHEN 500 MG TAB PO ONE (02:54)
[2024-11-18 03:06] LABS: BASO % 0.3 % (0.0-1.0); EOS # 0.1 10^3/uL (0.0-0.5); EOS % 1.6 % (0.0-3.0); HEMATOCRIT 32.6 % (36.0-47.0); HEMOGLOBIN 10.4 g/dl (12.0-15.5); LYMPH # 0.6 10^3/uL (1.5-5.0); LYMPH % 19.6 % (24.0-44.0); MEAN CORPUSCULAR HGB CONC 31.9 g/dl (32.0-36.5); MEAN CORPUSCULAR VOLUME 84.7 fl (80.0-96.0); MONO # 0.2 10^3/uL (0.0-0.8); MONO % 5.6 % (2.0-8.0); NEUTROPHILS # 2.2 10^3/uL (1.5-8.5); NEUTROPHILS % 72.2 % (36.0-66.0); PLATELET COUNT, AUTOMATED 205 10^3/uL (150-450); RED BLOOD COUNT 3.85 10^6/uL (4.00-5.40); WHITE BLOOD COUNT 3.1 10^3/uL (4.0-10.0)
[2024-11-18 03:22] LABS: ALBUMIN 2.6 G/DL (3.2-5.2); ALKALINE PHOSPHATASE 54 U/L (35-104); ALT/SGPT 9 U/L (7.0-40); AST/SGOT 16 U/L (<34); BILIRUBIN,DIRECT < 0.1 MG/DL (<0.4); BILIRUBIN,TOTAL 0.4 MG/DL (0.3-1.2); BLOOD UREA NITROGEN 25 MG/DL (9-23); CALCIUM LEVEL 8.8 MG/DL (8.5-10.1); CARBON DIOXIDE LEVEL 22 MMOL/L (20-31); CHLORIDE LEVEL 108 MMOL/L (98-107); CREATININE FOR GFR 0.96 MG/DL (0.55-1.30); GLOMERULAR FILTRATION RATE > 60.0 (>51); GLUCOSE, FASTING 96 MG/DL (60-100); POTASSIUM SERUM 3.7 MMOL/L (3.5-5.1); SODIUM LEVEL 142 MMOL/L (136-145); TOTAL PROTEIN 6.4 G/DL (5.7-8.2)
[2024-11-18] MEDS: NS (Normal Saline) 0.9% 1,000 ML IV ONE (06:35)
[2024-11-18] MEDS: methylPREDNISolone 125MG 2ML VIAL IV ONE (09:01)
[2024-11-18] MEDS ORDERED: PRED20TA PO (10:45)
[2024-11-18] MEDS: ONDANSETRON 4MG 2ML VIAL IV ONE (11:50)
[2024-11-18] MEDS ORDERED: POLY510P14 PO (12:22)
[2024-11-18] MEDS ORDERED: ZONI100C67 PO (12:22)
[2024-11-18] MEDS ORDERED: D 50CAP2 PO (12:22)
[2024-11-18] MEDS ORDERED: HOME MED LIST COMPLETE! XX SCH (12:40)
[2024-11-18] MEDS ORDERED: CHLORASEPTIC SPRAY MT PRN (13:40)
[2024-11-18] MEDS ORDERED: ALBUTEROL 90 MCG/ACT 8GM HFA INHALER INH PRN (13:45)
[2024-11-18 14:00] VITALS: BP 143/76; O2SAT 97
[2024-11-18] MEDS ORDERED: LORATADINE 10 MG TAB PO PRN (14:06)
[2024-11-18 14:16] VITALS: TEMP 97
[2024-11-18] MEDS ORDERED: MIDODRINE 5 MG TAB PO SCH (16:00)
[2024-11-18] MEDS ORDERED: APIXABAN 5 MG TAB (ELIQUIS) PO SCH (21:00)
[2024-11-18] MEDS ORDERED: ZONISAMIDE 100 MG CAP (ZONEGRAN) PO SCH (21:00)
[2024-11-18] MEDS ORDERED: FAMOTIDINE 20 MG TAB PO SCH (21:00)
== END 2024-11-18 14:25 | disposition home or self-care (01) ==
LOC: M ED 11-18 01:12
DX: A09 Infectious gastroenteritis and colitis, unspecified (principal); D72.819 Decreased white blood cell count, unspecified; J45.909 Unspecified asthma, uncomplicated; M32.9 Systemic lupus erythematosus, unspecified; F10.10 Alcohol abuse, uncomplicated; Z88.1 Allergy status to other antibiotic agents; Z91.018 Allergy to other foods; Z79.51 Long term (current) use of inhaled steroids; Z79.01 Long term (current) use of anticoagulants; Z79.52 Long term (current) use of systemic steroids; Z79.810 Long term (current) use of selective estrogen receptor modulators (SERMs); Z79.899 Other long term (current) drug therapy
CPT/HCPCS: 71045; 80048; 80076; 85025; 87486; 87581; 87633; 87798; 87880; 96374; 96375; 99285; J2405; J2919

== ENCOUNTER 2024-12-08 21:47 | Emergency (ER) | payer OTHER ==
[~2024-12-08 21:47] MED LIST changes: +D 50CAP2 PO; +POLY510P14 PO; +ZONI100C67 PO
[2024-12-08 22:57] LABS: HEMATOCRIT 36.7 % (36.0-47.0); HEMOGLOBIN 12.1 g/dl (12.0-15.5); LYMPH # 0.6 10^3/uL (1.5-5.0); LYMPH % 21.3 % (24.0-44.0); MEAN CORPUSCULAR HEMOGLOBIN 26.8 pg (27.0-33.0); MEAN CORPUSCULAR VOLUME 81.2 fl (80.0-96.0); MONO # 0.1 10^3/uL (0.0-0.8); MONO % 4.7 % (2.0-8.0); NEUTROPHILS % 73.3 % (36.0-66.0); PLATELET COUNT, AUTOMATED 165 10^3/uL (150-450); RED BLOOD COUNT 4.52 10^6/uL (4.00-5.40); WHITE BLOOD COUNT 2.8 10^3/uL (4.0-10.0)
[2024-12-08 23:11] LABS: ERYTHROCYTE SEDIMENTATION RATE 73 mm/hr (0-30)
[2024-12-08 23:27] LABS: C REACTIVE PROTEIN QUANTITATIV 1.39 MG/DL (<1.0)
[2024-12-08 23:28] LABS: CALCIUM LEVEL 8.8 MG/DL (8.5-10.1); CREATININE FOR GFR 1.45 MG/DL (0.55-1.30); GLOMERULAR FILTRATION RATE 39.8 (>51); POTASSIUM SERUM 3.8 MMOL/L (3.5-5.1)
[2024-12-09 03:53] VITALS: BP 138/74; TEMP 97.4; O2SAT 98
[2024-12-10] MEDS ORDERED: ELIQ2.5T PO (10:55)
== END 2024-12-09 03:50 | disposition home or self-care (01) ==
LOC: M ED 21:47
DX: M79.602 Pain in left arm (principal); F10.10 Alcohol abuse, uncomplicated; Z88.1 Allergy status to other antibiotic agents; Z91.018 Allergy to other foods; Z79.51 Long term (current) use of inhaled steroids; Z79.01 Long term (current) use of anticoagulants; Z79.810 Long term (current) use of selective estrogen receptor modulators (SERMs); Z79.52 Long term (current) use of systemic steroids; Z79.899 Other long term (current) drug therapy

== ENCOUNTER → 2024-12-21 | Outpatient (CLI) | payer OTHER ==
[~2024-12-21] MED LIST changes: +ELIQ2.5T PO
== END ==
LOC: M RAD 16:40
PROVIDERS: ATTEND Nurse Practitioner Family
DX: R63.4 Abnormal weight loss (principal); R05.8 Other specified cough; R10.12 Left upper quadrant pain

== ENCOUNTER → 2024-12-24 | Outpatient (CLI) | payer OTHER ==
[2024-12-24 14:26] LABS: BASO % 0.1 % (0.0-1.0); HEMATOCRIT 31.6 % (36.0-47.0); HEMOGLOBIN 10.5 g/dl (12.0-15.5); LYMPH # 0.4 10^3/uL (1.5-5.0); LYMPH % 5.1 % (24.0-44.0); MEAN CORPUSCULAR HEMOGLOBIN 27.1 pg (27.0-33.0); MEAN CORPUSCULAR HGB CONC 33.2 g/dl (32.0-36.5); MEAN CORPUSCULAR VOLUME 81.4 fl (80.0-96.0); MONO # 0.2 10^3/uL (0.0-0.8); MONO % 2.2 % (2.0-8.0); NEUTROPHILS # 7.1 10^3/uL (1.5-8.5); NEUTROPHILS % 89.4 % (36.0-66.0); PLATELET COUNT, AUTOMATED 190 10^3/uL (150-450); RED BLOOD COUNT 3.88 10^6/uL (4.00-5.40); WHITE BLOOD COUNT 7.9 10^3/uL (4.0-10.0)
[2024-12-24 14:58] LABS: CREATININE FOR GFR 1.59 MG/DL (0.55-1.30); GLOMERULAR FILTRATION RATE 35.8 (>51); POTASSIUM SERUM 4.8 MMOL/L (3.5-5.1)
== END ==
LOC: M LAB 13:34
PROVIDERS: ATTEND Internal Medicine Cardiovascular Disease
DX: I48.0 Paroxysmal atrial fibrillation (principal)

== ENCOUNTER → 2024-12-29 | Outpatient (CLI) | payer OTHER | LOC: M RAD 13:00 | PROVIDERS: ATTEND Internal Medicine Medical Oncology | DX: D72.819 Decreased white blood cell count, unspecified (principal) ==

== ENCOUNTER → 2024-12-31 | Outpatient (CLI) | payer OTHER ==
[~2024-12-31] MED LIST changes: +IPRA6SP; +JARD1TAB; +ROSU10TA61
== END ==
LOC: M RAD 11:55
PROVIDERS: ATTEND Ophthalmology
DX: E04.1 Nontoxic single thyroid nodule (principal); Z79.83 Long term (current) use of bisphosphonates

== ENCOUNTER → 2025-01-18 | Outpatient (CLI) | payer OTHER ==
[~2025-01-18] MED LIST changes: -IPRA6SP; -JARD1TAB; -ROSU10TA61
[2025-01-18 17:28] LABS: APPEARANCE, URINE CLEAR (CLEAR); BACTERIA, URINE AUTO NEGATIVE (NEGATIVE); BILIRUBIN, URINE AUTO NEGATIVE (NEGATIVE); BLOOD, URINE BLOOD NEGATIVE (NEGATIVE); COLOR, URINE YELLOW (YELLOW); GLUCOSE, URINE (UA) AUTO 3+ mg/dL (NEGATIVE); KETONE, URINE AUTO NEGATIVE (NEGATIVE); LEUKOCYTE ESTERASE, URINE AUTO NEGATIVE (NEGATIVE); MUCUS, URINE SMALL (NEGATIVE); NITRITE, URINE AUTO NEGATIVE (NEGATIVE); PROTEIN, URINE AUTO 3+ mg/dL (NEGATIVE); RBC, URINE AUTO 2 /HPF (0-3); SPECIFIC GRAVITY URINE AUTO 1.023 (1.002-1.035); SQUAMOUS EPITHELIAL CELL UR AU 1 /HPF (0-6); UROBILINOGEN, URINE AUTO 0.2 mg/dL (0.0-2.0); WBC, URINE AUTO 1 /HPF (0-3)
[2025-01-18 18:02] LABS: CREATININE FOR GFR 1.09 MG/DL (0.55-1.30); GLOMERULAR FILTRATION RATE 55.3 (>51); POTASSIUM SERUM 4.2 MMOL/L (3.5-5.1)
[2025-01-18 18:03] LABS: CREATININE,RANDOM URINE 67.8 MG/DL
[2025-01-18 18:19] LABS: COMPLEMENT C3 73.7 MG/DL (90.0-170.0)
== END ==
LOC: M LAB 16:28
PROVIDERS: ATTEND Internal Medicine Rheumatology
DX: M32.19 Other organ or system involvement in systemic lupus erythematosus (principal)

== ENCOUNTER → 2025-01-27 | Outpatient (CLI) | payer OTHER | LOC: M RAD 15:44 | PROVIDERS: ATTEND Student in an Organized Health Care Education/Training Program | DX: R80.1 Persistent proteinuria, unspecified (principal); N17.9 Acute kidney failure, unspecified; N18.31 Chronic kidney disease, stage 3a ==

== ENCOUNTER → 2025-03-26 | Outpatient (REF) | payer OTHER ==
[~2025-03-26] MED LIST changes: +IPRA6SP; +JARD1TAB; +LIFI1DRO4 OP; +LIFI1DRO4 OU; +ROSU10TA61; -XIID5DRO OP; -XIID5DRO OU
[2025-03-26 17:56] LABS: APPEARANCE, URINE CLEAR (CLEAR); BACTERIA, URINE AUTO NEGATIVE (NEGATIVE); BILIRUBIN, URINE AUTO NEGATIVE (NEGATIVE); BLOOD, URINE BLOOD NEGATIVE (NEGATIVE); COLOR, URINE YELLOW (YELLOW); GLUCOSE, URINE (UA) AUTO 3+ mg/dL (NEGATIVE); KETONE, URINE AUTO NEGATIVE (NEGATIVE); LEUKOCYTE ESTERASE, URINE AUTO NEGATIVE (NEGATIVE); NITRITE, URINE AUTO NEGATIVE (NEGATIVE); PROTEIN, URINE AUTO 2+ mg/dL (NEGATIVE); RBC, URINE AUTO 0 /HPF (0-3); SPECIFIC GRAVITY URINE AUTO 1.023 (1.002-1.035); SQUAMOUS EPITHELIAL CELL UR AU 0 /HPF (0-6); UROBILINOGEN, URINE AUTO 0.2 mg/dL (0.0-2.0); WBC, URINE AUTO 2 /HPF (0-3)
== END ==
LOC: M SMT 17:20
PROVIDERS: ATTEND Nurse Practitioner Family
DX: N39.41 Urge incontinence (principal)

== ENCOUNTER → 2025-07-15 | Outpatient (REF) | payer OTHER ==
[~2025-07-15] MED LIST changes: +LISI2.5T9 PO; +MYRB50TA PO
[2025-07-15 17:25] LABS: APPEARANCE, URINE HAZY (CLEAR); BACTERIA, URINE AUTO 2+ (NEGATIVE); BILIRUBIN, URINE AUTO NEGATIVE (NEGATIVE); BLOOD, URINE BLOOD NEGATIVE (NEGATIVE); GLUCOSE, URINE (UA) AUTO 3+ mg/dL (NEGATIVE); KETONE, URINE AUTO NEGATIVE (NEGATIVE); LEUKOCYTE ESTERASE, URINE AUTO 2+ (NEGATIVE); NITRITE, URINE AUTO NEGATIVE (NEGATIVE); PROTEIN, URINE AUTO NEGATIVE (NEGATIVE); RBC, URINE AUTO 0 /HPF (0-3); SPECIFIC GRAVITY URINE AUTO 1.013 (1.002-1.035); SQUAMOUS EPITHELIAL CELL UR AU 1 /HPF (0-6); UROBILINOGEN, URINE AUTO 0.2 mg/dL (0.0-2.0); WBC, URINE AUTO 35 /HPF (0-3)
== END ==
LOC: M SMT 16:52
PROVIDERS: ATTEND Nurse Practitioner Family
DX: N39.41 Urge incontinence (principal)

== ENCOUNTER 2025-09-30 15:53 | Emergency (ER) | payer OTHER ==
[~2025-09-30 15:53] MED LIST changes: -ROSU10TA61; +ROSU10TA90
[2025-09-30 17:25] LABS: BASO # 0.0 10^3/uL (0.0-0.2); BASO % 0.4 % (0.0-1.0); EOS # 0.0 10^3/uL (0.0-0.5); EOS % 0.2 % (0.0-3.0); LYMPH # 1.0 10^3/uL (1.5-5.0); LYMPH % 17.3 % (24.0-44.0); MONO # 0.4 10^3/uL (0.0-0.8); MONO % 7.6 % (2.0-8.0); NEUTROPHILS # 4.2 10^3/uL (1.5-8.5); NEUTROPHILS % 74.0 % (36.0-66.0); PLATELET COUNT, AUTOMATED 186 10^3/uL (150-450)
[2025-09-30 17:53] LABS: CALCIUM LEVEL 8.7 MG/DL (8.5-10.1); CARBON DIOXIDE LEVEL 23.0 MMOL/L (20-31); CHLORIDE LEVEL 109.0 MMOL/L (98-107); CREATININE FOR GFR 1.0 MG/DL (0.55-1.30); GLOMERULAR FILTRATION RATE 65.7 (>51); POTASSIUM SERUM 4.0 MMOL/L (3.5-5.1); SODIUM LEVEL 143.0 MMOL/L (136-145)
[2025-09-30 18:51] VITALS: BP 122/62
[2025-09-30 19:08] VITALS: TEMP 99.1; O2SAT 96
[2025-10-04] MEDS ORDERED: WARF-60 (15:06)
[2025-10-04] MEDS ORDERED: ROSU40TA81 (15:06)
[2025-10-04] MEDS ORDERED: WARF-23 (15:06)
[2025-10-04] MEDS ORDERED: WARF4TAB52 (15:06)
[2025-10-04] MEDS ORDERED: EZET10TA57 (15:06)
== END 2025-09-30 19:20 | disposition home or self-care (01) ==
LOC: EDBD 15:53 → M ED 15:53
DX: R55 Syncope and collapse (principal); E11.9 Type 2 diabetes mellitus without complications; I10 Essential (primary) hypertension; J45.909 Unspecified asthma, uncomplicated; K21.9 Gastro-esophageal reflux disease without esophagitis; G43.909 Migraine, unspecified, not intractable, without status migrainosus; Z88.1 Allergy status to other antibiotic agents; Z91.018 Allergy to other foods; Z88.8 Allergy status to other drugs, medicaments and biological substances; Z79.52 Long term (current) use of systemic steroids; Z79.01 Long term (current) use of anticoagulants; Z79.899 Other long term (current) drug therapy